=== PATIENT | male | born 1975 | race Caucasian/White ===

== ENCOUNTER 2016-05-02 18:25 | Inpatient (IN) | payer OTHER ==
[~2016-05-02] VITALS: Ht 167.6 cm; Wt 62.4 kg
[~2016-05-02 18:25] MED LIST: ACET-2047 PO; BUSP10TA2 PO; CANA1000R PR; IBUP400T22 PO; ISON300T72 PO; PANT40TA3 PO; POLY17PO6 PO; PSYL1PAC8 PO
[2016-05-02 18:53] VITALS: Ht 167.6 cm; Wt 62.4 kg
[2016-05-02] MEDS ORDERED: SODIUM CHLORIDE 0.9% 1L BAG IV* STA (21:38)
[2016-05-02] MEDS ORDERED: ISONIAZID 300 MG TAB PO ONE (22:00)
--- NOTE | 2016-05-02 22:07 | RADRPT ---
PROCEDURE: XR Chest. CLINICAL INDICATION: Sepsis. TECHNIQUE: Single frontal view of the chest was obtained COMPARISON: Chest x-ray 01/30/2016. FINDINGS: The soft tissues are normal. There is an old fracture deformity of the mid left clavicle which is u nchanged. The heart is normal in size. The left-sided aorta is normal. The trachea and hilar struc tures are normal. The lungs are clear. The diaphragms are flattened. No pleural effusion is noted . The other bony elements are normal. IMPRESSION: 1. Pulmonary hyperinflation without evidence of an acute infiltrate. 2. Old fracture deformity of the left clavicle. 3. Stable chest compared to 01/20/2016. RPTAT:AAJJ Physician Cecelia Date Time Electronically viewed and signed by Physician Cecelia on 05/02/2016 22:06 /
[2016-05-02 22:18] LABS: ADD SCAN DIFF NO
[2016-05-02 22:20] LABS: BASOPHIL # 0.1 10^3/ul (0.0-0.1); BASOPHILS % 0.8 % (0.0-2.0); EOSINOPHILS # 0.2 10^3/ul (0.0-0.5); EOSINOPHILS % 3.4 % (0.0-7.0); HEMATOCRIT 43.8 % (42.0-52.0); HEMOGLOBIN 14.5 g/dl (14.0-18.0); LYMPHOCYTES # 2.4 10^3/ul (0.8-2.9); LYMPHOCYTES % 38.2 % (15.0-51.0); MEAN CORPUSCULAR HEMOGLOBIN 29.5 pg (29.0-33.0); MEAN CORPUSCULAR HGB CONC 33.1 g/dl (32.0-37.0); MEAN CORPUSCULAR VOLUME 89.2 fl (82.0-101.0); MEAN PLATELET VOLUME 11.1 fl (7.4-10.4); MONOCYTE # 0.7 10^3/ul (0.3-0.9); MONOCYTES % 10.5 % (0.0-11.0); NEUTROPHIL # 2.9 10^3/ul (1.6-7.5); NEUTROPHILS % 46.9 % (39.0-77.0); PLATELET COUNT 220 10^3/UL (140-415); RED BLOOD COUNT 4.91 10^6/ul (4.70-6.10); RED CELL DISTRIBUTION WIDTH 13.4 % (11.5-14.5); WHITE BLOOD COUNT 6.2 10^3/ul (4.8-10.8)
[2016-05-02 22:31] LABS: ALBUMIN 4.2 g/dl (3.3-4.9); CHLORIDE 102 mmol/L (97-110); INR 0.9; PARTIAL THROMBOPLASTIN TIME 27.5 Sec (25.0-35.0); POTASSIUM 4.2 mmol/L (3.5-5.1); PROTIME 12.1 Sec (12.2-14.2); PT RATIO 0.9; SODIUM 143 mmol/L (135-144)
[2016-05-02 22:33] LABS: ALBUMIN/GLOBULIN RATIO 1.35; ANION GAP 16 (8-16); ASPARTATE AMINO TRANSFERASE 28 IU/L (15-46); BILIRUBIN,INDIRECT 0.2 mg/dl (0-1.1); BILIRUBIN,TOTAL 0.2 mg/dl (0.2-1.3); CARBON DIOXIDE 29 mmol/L (21-31); CREATININE 0.76 mg/dl (0.61-1.24); TOTAL PROTEIN 7.3 g/dl (6.1-8.1)
[2016-05-02 22:34] LABS: ALANINE AMINOTRANSFERASE 24 IU/L (13-69); ALKALINE PHOSPHATASE 48 IU/L (42-121); BLOOD UREA NITROGEN 11 mg/dl (7-20); CALCIUM 9.3 mg/dl (8.4-10.2); GLUCOSE 81 mg/dl (70-220)
[2016-05-02 22:47] LABS: TROPONIN-I < 0.012 ng/ml (0.00-0.12)
[2016-05-02] MEDS ORDERED: SOD CHLORIDE 0.9% 100 ML ONE (22:54)
[2016-05-02] MEDS ORDERED: IOHEXOL 300MG/ML 150 ML BTL ONE (22:54)
[2016-05-03 00:09] LABS: ADD UMIC NO; URINE BILIRUBIN (Dip) NEGATIVE (NEGATIVE); URINE BLOOD (Dip) NEGATIVE (NEGATIVE); URINE COLOR LT. YELLOW (YELLOW); URINE GLUCOSE (Dip) NEGATIVE (NEGATIVE); URINE KETONES (Dip) NEGATIVE (NEGATIVE); URINE LEUKOCYTE ESTERASE (Dip) NEGATIVE (NEGATIVE); URINE NITRITE (Dip) NEGATIVE (NEGATIVE); URINE TOTAL PROTEIN (Dip) NEGATIVE (NEGATIVE); URINE UROBILINOGEN (Dip) 0.2 E.U./dL (0.1-1.0)
--- NOTE | 2016-05-03 00:37 | RADRPT ---
PROCEDURE: CT Chest with contrast. CLINICAL INDICATION: Sepsis, thoracic mass. History of tuberculosis. TECHNIQUE: A CT scan of the chest with contrast was performed. Coronal and sagittal reformatted im ages were obtained from the axial source images. 90 cc Omnipaque 300 were administered during examin ation without complication. CTDIvol: 4.94 mGy. Exam DLP: 177.58 mGy-cm. COMPARISON: CTA of the chest dated 07/08/2015. FINDINGS: There is no suspicious thyroid lesion. No thoracic lymphadenopathy is seen. The trachea and mainst em bronchi are patent. The heart is not enlarged. There is no pericardial effusion. There is scarring at the right lung apex, unchanged. A patchy right upper lobe opacity with subtle a ssociated bronchiectasis is decreased since the prior CT. There is no pleural effusion or pneumothor ax Limited evaluation of the upper abdomen is unremarkable. There is no suspicious osseous lesion. IMPRESSION: 1. Patchy right upper lobe opacity with subtle associated bronchiectasis, decreased since the prior CT. It is unclear if this represents an active infection versus residual scarring. 2. No thoracic mass or lymphadenopathy. RPTAT: HTAR .Alcides Garcia MD, Date Time Electronically viewed and signed by .Alcides Garcia MD, on 05/03/2016 00:36 .R/
[2016-05-03] MEDS ORDERED: SOD CHLORIDE 0.9% 1,000 ML IV SCH (01:42)
--- NOTE | 2016-05-03 01:46 | ERA ---
ER Documentation Chief Complaint Date/Time DATE: 05/03/16 TIME: 01:43 Chief Complaint Back pain. DX PTB. Non compliant with medication HPI This is a 40-year-old male with a history of tuberculosis who presents to the emergency room for evaluation of body aches, back pain, and mild shortness of breath. This patient was on isoniazid, however he did not complete his 9 month course. The patient denies any fever, came to the emergency room for evaluation. This patient states that he is having pain all over his body and describes his pain is an achy pain and almost a muscular type of pain. He denies any trauma and denies any chills or weight loss. ROS All systems reviewed and are negative except as per history of present illness. Medications Home Meds Active Scripts Pantoprazole* (Protonix*) 40 Mg Tablet.dr, 40 MG PO BID for 30 Days, TAB Prov:TERESA WINCHESTER [employer] ARTIST INSTRUCTOR 07/18/15 Mesalamine* (Canasa*) 1,000 Mg Supp, 1000 MG AR HS for 30 Days, SUPP Prov:WINCHESTERTERESA V. [employer] ARTIST INSTRUCTOR 07/18/15 Isoniazid* (Isoniazid*) 300 Mg Tablet, 300 MG PO DAILY for 90 Days, TAB TAKES FOR 9 MONTHS Prov:TERESA WINCHESTER [employer] ARTIST INSTRUCTOR 07/18/15 Reported Medications Psyllium Seed/Sucrose* (Metamucil* Packet) 1 Pkt Packet, 1 PKT PO DAILY, PACKET 07/08/15 Polyethylene Glycol* (Miralax*) 17 Gm Powd.pack, 17 GM PO DAILY, #30 PACKET 07/08/15 Acetaminophen* (Acetaminophen*) 650 Mg Tablet, 650 MG PO Q6H Y for PAIN AND OR ELEVATED TEMP, #30 TAB 07/08/15 Ibuprofen* (Motrin*) 400 Mg Tab, 400 MG PO Q6H Y for PAIN, TAB 07/08/15 Buspirone Hcl* (Buspirone Hcl*) 10 Mg Tab, 20 MG PO BID, TAB 07/08/15 Allergies Allergies: Coded Allergies: No Known Allergy (Unverified , 04/24/13) PMhx/Soc History of Surgery: Yes (hemorrhoid sx) Anesthesia Reaction: No Hx Neurological Disorder: No Hx Respiratory Disorders: Yes (TB on meds) Hx Cardiac Disorders: No Hx Psychiatric Problems: No Hx Miscellaneous Medical Probl: No Hx Alcohol Use: No Hx Substance Use: No Hx Tobacco Use: No Smoking Status: Never smoker Physical Exam Vitals Vital Signs Date Time Temp Pulse Resp B/P Pulse Ox O2 Delivery O2 Flow Rate FiO2 05/02/16 23:49 Nasal Cannula 2 05/02/16 18:53 97.9 91 18 106/72 99 Physical Exam INITIAL VITAL SIGNS: Reviewed by me GENERAL: The patient is cachectic appearing gentleman, no acute distress HEENT: Dry mucous membranes, pupils equal, round, and reactive to light. EOMI. There is no scleral icterus. NECK: C-spine is soft and supple, there is no meningismus. There is no cervical lymphadenopathy. LUNGS: Clear to auscultation bilaterally. There are no rales, wheezes or rhonchi. HEART: Regular rate and rhythm, no murmurs, clicks, rubs or gallops. ABDOMEN: Soft, non-tender, non-distended. There are bowel sounds in all four quadrants. No rebound or guarding. EXTREMITIES: There is no peripheral cyanosis or edema. No focal swelling or erythema. NEUROLOGICAL: The patient moves all four extremities with 5/5 strength. Cranial nerves II - XII are intact. Normal gait. Alert and oriented SKIN: There is no apparent rash or petechiae. HEME/LYMPHATIC: There is no evidence of excessive bruising or lymphedema. PSYCHIATRIC: The patient does not appear anxious or depressed. Result Diagram: 05/02/16214905/02/162149 Results 24 hrs Laboratory Tests Test 05/02/16 21:50 05/02/16 23:50 Activated Partial Thromboplast Time 27.5Sec Alanine Aminotransferase (ALT/SGPT) 24IU/L Albumin 4.2g/dl Albumin/Globulin Ratio 1.35 Alkaline Phosphatase 48IU/L Anion Gap 16 Aspartate Amino Transf (AST/SGOT) 28IU/L Basophils # 0.110^3/ul Basophils % 0.8% Blood Urea Nitrogen 11mg/dl Calcium Level 9.3mg/dl Carbon Dioxide Level 29mmol/L Chloride Level 102mmol/L Creatinine 0.76mg/dl Direct Bilirubin 0.00mg/dl Eosinophils # 0.210^3/ul Eosinophils % 3.4% Globulin 3.10g/dl Glucose Level 81mg/dl Hematocrit 43.8% Hemoglobin 14.5g/dl INR International Normalized Ratio 0.90 Indirect Bilirubin 0.2mg/dl Lactic Acid Level 1.0mmol/L 0.8mmol/L Lymphocytes # 2.410^3/ul Lymphocytes % 38.2% Mean Corpuscular Hemoglobin 29.5pg Mean Corpuscular Hemoglobin Concent 33.1g/dl Mean Corpuscular Volume 89.2fl Mean Platelet Volume 11.1fl Monocytes # 0.710^3/ul Monocytes % 10.5% Neutrophils # 2.910^3/ul Neutrophils % 46.9% Nucleated Red Blood Cells # 0.010^3/ul Nucleated Red Blood Cells % 0.0/100WBC Platelet Count 67438^3/UL Potassium Level 4.2mmol/L Prothrombin Time 12.1Sec Prothrombin Time Ratio 0.9 Red Blood Count 4.9110^6/ul Red Cell Distribution Width 13.4% Sodium Level 143mmol/L Total Bilirubin 0.2mg/dl Total Protein 7.3g/dl Troponin I < 0.012ng/ml White Blood Count 6.210^3/ul Urine Bilirubin NEGATIVE Urine Clarity CLEAR Urine Color LT. YELLOW Urine Glucose NEGATIVE% Urine Hemoglobin NEGATIVE Urine Ketones NEGATIVE Urine Leukocyte Esterase NEGATIVE Urine Nitrite NEGATIVE Urine Specific [place] 1.010 Urine Total Protein NEGATIVE Urine Urobilinogen 0.2 E.U./dL Urine pH 8.0 Current Medications Medications (Trade) Dose Ordered Sig/Jenny Route PRN Reason Start Time Stop Time Status Last Admin Dose Admin Sodium Chloride (NS) 1,970 ml BOLUS OVER 2 HOURS STAT IV* 05/02/16 21:38 05/02/16 21:39 DC 05/02/16 23:27 Isoniazid (Isoniazid) 300 mg ONCE ONCE PO 05/02/16 22:00 05/02/16 22:01 DC 05/02/16 23:43 IV Flush 10 ml 10 ml STK-MED ONCE .ROUTE 05/02/16 22:54 05/02/16 22:55 DC 05/02/16 23:09 Sodium Chloride (NS) 100 ml @ ud STK-MED ONCE .ROUTE 05/02/16 22:54 05/02/16 22:55 DC 05/02/16 23:09 Iohexol (Omnipaque 300mg/ ml) 150 ml STK-MED ONCE .ROUTE 05/02/16 22:54 05/02/16 22:55 DC 05/02/16 23:09 Procedures/MDM EKG: Rate/Rhythm: [Normal Sinus Rhythm] QRS, ST, T-waves: [No changes consistent w/ acute ischemia] Impression: [No evidence of ischemia or arrhythmia] Chest X-ray 1V Interpreted by me: Soft Tissue: No acute abnormalities Bones: No acute abnormalities Mediastinum/Cardiac Silhouette/Lungs: [No acute abnormalities] CT chest with contrast: 1. Patchy right upper lobe opacity with subtle associated bronchiectasis, decreased since the prior CT. It is unclear if this represents an active infection versus residual scarring. 2. No thoracic mass or lymphadenopathy. This 40-year-old male presents to the ER for evaluation of generalized weakness , back pain, body aches. The patient does have a history of tuberculosis, and has been noncompliant with his isoniazid medications. The patient was afebrile here in the emergency room. Blood and urine cultures were obtained including an acid-fast bacilli culture. The patient did have a CT of the chest with contrast which does show a right upper lobe opacity. The patient was given isoniazid here in the emergency room. He was kept in a negative isolation room and will be placed in for admission under the care of her panel physician, Dr. Storm Departure Diagnosis: Primary Impression: Tuberculosis Additional Impressions: Myalgia Back pain Condition: Stable VINNIE LEVI DO May 03, 2016 01:46
[2016-05-03] MEDS ORDERED: ACETAMINOPHEN 325 MG TAB PO PRN ×2 (02:00→04:00)
[2016-05-03] MEDS ORDERED: ONDANSETRON 4 MG INJ IV PRN ×2 (02:00→04:00)
[2016-05-03 02:43] VITALS: BMI 22.2
[2016-05-03 03:07] VITALS: BP 117/80; RESP 16
[2016-05-03] MEDS ORDERED: NITROGLYCERIN (SL) 0.4 MG TAB SL PRN (04:00)
[2016-05-03] MEDS ORDERED: hydrALAzine 20 MG INJ IV PRN (04:00)
[2016-05-03] MEDS ORDERED: MAGNESIUM HYDROXIDE 30ML CUP PO PRN (04:00)
[2016-05-03] MEDS ORDERED: ALBUTEROL/IPRATROPIUM (NEB) 3 ML AMP HHN PRN (04:00)
[2016-05-03] MEDS ORDERED: NA PHOSPHATE/BIPHOS 133 ML ENEMA PR PRN (04:00)
[2016-05-03] MEDS ORDERED: NACL 0.9% 3 ML SYG IV SCH (04:00)
[2016-05-03] MEDS ORDERED: DOCUSATE SODIUM 100 MG CAP PO PRN (04:00)
[2016-05-03] MEDS ORDERED: IBUPROFEN 400 MG TAB PO PRN (04:00)
[2016-05-03] MEDS ORDERED: LORAZEPAM 2 MG INJ IV PRN (04:00)
[2016-05-03] MEDS ORDERED: DIVA500T15 PO (04:21)
[2016-05-03] MEDS: SOD CHLORIDE 0.45% 1,000 ML IV SCH ×2 (04:34→18:40)
[2016-05-03] MEDS: morphine 2 MG INJ IV PRN (04:35)
[2016-05-03] MEDS: LEVOFLOXACIN 750MG/D5W (PMX) 150 ML IVPB SCH (06:12)
[2016-05-03] MEDS: PANTOPRAZOLE (EC) 40 MG TAB PO SCH ×2 (06:12→18:40)
--- NOTE | 2016-05-03 07:05 | HP ---
DATE OF ADMISSION: 05/03/2016 CHIEF COMPLAINT: Body aches and back pain. HISTORY OF PRESENT ILLNESS: A 40-year-old male with a past medical history of TB diagnosed about 9 months ago, who has not been compliant with isoniazid, who presents with body aches and back pain. He has also had some mild shortness of breath symptoms. The patient has not completed his 9-month c ourse of isoniazid. Denies any fevers, but he describes the pain as sort of all over his body, achi ng pain, almost a muscular type of pain, so positive myalgias. Denies any trauma to the area. Horace es any chills. No weight loss, no upper or lower GI bleeding. No diarrhea, no constipation. No he adaches. PAST MEDICAL HISTORY: As stated above. ALLERGIES: NO KNOWN DRUG ALLERGIES. HOME MEDICATIONS: 1. Again, Isoniazid 300 mg daily, but he is not compliant with that. 2. Tylenol 650 q.6 p.r.n. 3. Buspirone 20 mg b.i.d. 4. Divalproex 500 mg at bedtime. 5. Motrin 400 mg q.6h. p.r.n. 6. Mesalamine 1000 mg per rectum at bedtime. 7. Protonix 40 mg b.i.d. 8. MiraLax 17 grams daily. 9. Metamucil, 1 packet daily. PAST SURGICAL HISTORY: Hemorrhoid surgery in the past. SOCIAL HISTORY: Negative for smoking, drinking, or IV drug abuse. FAMILY HISTORY: Noncontributory. PHYSICAL EXAMINATION: VITAL SIGNS: Today T-max 97.9, pulse 91, respirations 18, blood pressure 106/72, saturating at 99% on 2 liters nasal cannula. GENERAL: The patient is lying in bed, answering questions appropriately, in negative room isolation , in no acute distress. HEENT: Pupils are equal, round, and react to light. Extraocular muscles intact. NECK: Supple. No thyromegaly. LUNGS: Clear to auscultation bilaterally. CARDIOVASCULAR: S1, S2 heard. No rubs or gallops. ABDOMEN: Soft, nontender, nondistended. Normal bowel sounds. No rebound or guarding. MUSCULOSKELETAL: No lower extremity edema bilaterally. NEUROLOGIC: No focal deficits. LABORATORIES: CBC is normal. A comprehensive metabolic panel is normal. Lactic acid is normal. C oags are normal. CT of the chest was performed and it shows patchy right upper lobe opacity with subtle associated br onchiectasis, decreased since the prior CT. Unclear if this represents active infection versus scar ring. No thoracic mass or lymphadenopathy. Chest x-ray was performed, shows pulmonary hyperinflatio n, but no evidence of any acute infiltrate. Old fracture deformity of the left clavicle stable. St able chest x-ray compared to 01/20/2016. ASSESSMENT AND PLAN: A 40-year-old male coming in with body aches and weakness for the last 2 days a nd noncompliance with TB medications. Rule out active tuberculosis. 1. Body aches and weakness. Again, with a history of noncompliance with TB medications. Will keep the patient in negative air isolation room. Will check first sputum for AFB x3, will put him back on isoniazid. Consider an infectious disease consult as well. If there are any abnormalities with his AFB test, i.e., if they are positive, then the patient would need to be on 4-drug therapy at norm t time. Tylenol p.r.n. pain and fevers. Will add Levaquin, given the chest x-ray findings of mild infiltrate, although it has improved. Check a TSH, A1c, and lipid panel. 2. Gastrointestinal prophylaxis. PPI. 3. Deep venous thrombosis prophylaxis. Heparin subcutaneously. 4. History of hemorrhoids. Continue mesalamine. No signs of any bleeding. Dictated By: SHERRY CONRAD/JEFFERSON Conf#: [id number] DID#: [id number]
[2016-05-03 08:30] VITALS: BP 122/85; RESP 16
[2016-05-03] MEDS: POLYETHYLENE GLYCOL 17 GM PACKET PO SCH (09:03)
[2016-05-03] MEDS: PSYLLIUM 28% PACKET PO SCH (09:03)
[2016-05-03] MEDS: BUSPIRONE 10 MG TAB PO SCH ×2 (09:03→21:44)
[2016-05-03] MEDS: ISONIAZID 300 MG TAB PO SCH (09:03)
[2016-05-03] MEDS: HEPARIN 5,000 UNIT/0.5 ML SYG SC SCH ×2 (09:51→21:50)
--- NOTE | 2016-05-03 11:41 | PN ---
Date/Time of Note Date/Time of Note DATE: 05/03/16 TIME: 11:38 Assessment/Plan VTE Prophylaxis VTE Prophylaxis Intervention: heparin, SCD's Lines/Catheters IV Catheter Type (from Nrs): Peripheral IV Urinary Cath still in place: No Assessment/Plan Assessment/Plan 1. rule out TB, AFB x 3 2. Gastrointestinal prophylaxis. PPI. 3. Deep venous thrombosis prophylaxis. Heparin subcutaneously. 4. History of hemorrhoids. Continue mesalamine. No signs of any bleeding. Subjective 24 Hr Interval Summary Free Text/Dictation pt still c/o abd pain, BP stable, afebrile Exam/Review of Systems Vital Signs Vitals Vital Signs Date Time Temp Pulse Resp B/P Pulse Ox O2 Delivery O2 Flow Rate FiO2 05/03/16 08:30 98.0 65 16 122/85 99 05/02/16 23:49 Nasal Cannula 2 Intake and Output 05/02/16 05/02/16 05/03/16 15:00 23:00 07:00 Intake Total 30 ml Output Total 450 ml Balance -420 ml Exam GENERAL: The patient is lying in bed, answering questions appropriately, in negative room isolation, in no acute distress. HEENT: Pupils are equal, round, and react to light. Extraocular muscles intact. NECK: Supple. No thyromegaly. LUNGS: Clear to auscultation bilaterally. CARDIOVASCULAR: S1, S2 heard. No rubs or gallops. ABDOMEN: Soft, nontender, nondistended. Normal bowel sounds. No rebound or guarding. MUSCULOSKELETAL: No lower extremity edema bilaterally. NEUROLOGIC: No focal deficits. Results Result Diagram: 05/02/16214905/02/162149 Results 24 hrs Laboratory Tests Test 05/02/16 21:50 05/02/16 23:50 05/03/16 02:10 05/03/16 04:55 Activated Partial Thromboplast Time 27.5 Alanine Aminotransferase (ALT/SGPT) 24 Albumin 4.2 Albumin/Globulin Ratio 1.35 Alkaline Phosphatase 48 Anion Gap 16 Aspartate Amino Transf (AST/SGOT) 28 Basophils # 0.1 Basophils % 0.8 Blood Urea Nitrogen 11 Calcium Level 9.3 Carbon Dioxide Level 29 Chloride Level 102 Creatinine 0.76 Direct Bilirubin 0.00 Eosinophils # 0.2 Eosinophils % 3.4 Globulin 3.10 Glucose Level 81 Hematocrit 43.8 Hemoglobin 14.5 INR International Normalized Ratio 0.90 Indirect Bilirubin 0.2 Lactic Acid Level 1.0 0.8 0.8 Lymphocytes # 2.4 Lymphocytes % 38.2 Mean Corpuscular Hemoglobin 29.5 Mean Corpuscular Hemoglobin Concent 33.1 Mean Corpuscular Volume 89.2 Mean Platelet Volume 11.1 H Monocytes # 0.7 Monocytes % 10.5 Neutrophils # 2.9 Neutrophils % 46.9 Nucleated Red Blood Cells # 0.0 Nucleated Red Blood Cells % 0.0 Platelet Count 220 Potassium Level 4.2 Prothrombin Time 12.1 L Prothrombin Time Ratio 0.9 Red Blood Count 4.91 Red Cell Distribution Width 13.4 Sodium Level 143 Total Bilirubin 0.2 Total Protein 7.3 Troponin I < 0.012 White Blood Count 6.2 Urine Bilirubin NEGATIVE Urine Clarity CLEAR Urine Color LT. YELLOW Urine Glucose NEGATIVE Urine Hemoglobin NEGATIVE Urine Ketones NEGATIVE Urine Leukocyte Esterase NEGATIVE Urine Nitrite NEGATIVE Urine Specific [place] 1.010 Urine Total Protein NEGATIVE Urine Urobilinogen 0.2 E.U./dL Urine pH 8.0 Free Thyroxine 1.12 Medications Medications Current Medications Sodium Chloride (NS) 1,000 ml @ 80 mls/hr [id number] IV ; Start 05/03/16 at 01:42 ; Stop 05/03/16 at 14:11 Ondansetron HCl (Zofran Inj) 4 mg Q6H PRN IV NAUSEA AND/OR VOMITING; Start at 04:00 Acetaminophen (Tylenol Tab) 650 mg Q6H PRN PO PAIN LEVEL 1-3 OR FEVER; Start at 04:00 Acetaminophen/ Hydrocodone Bitart (Aurelia (5/325)) 1 tab Q6H PRN PO MODERATE PAIN LEVEL 4-6; Start 05/03/16 at 04:00 Morphine Sulfate (morphine) 2 mg Q4H PRN IV SEVERE PAIN LEVEL 7-10 Last administered on 05/03/16t 04:35; Admin Dose 2 MG; Start 05/03/16 at 04:00 Docusate Sodium (Colace) 100 mg Q12H PRN PO CONSTIPATION; Start 05/03/16 at 04: 00 Magnesium Hydroxide (Milk Of Mag) 30 ml DAILY PRN PO CONSTIPATION; Start at 04:00 Sodium Biphosphate/ Sodium Phosphate (Fleet Enema) 133 ml DAILY PRN ME CONSTIPATION; Start 05/03/16 at 04:00 Heparin Sodium (Porcine) 5000 unit 5,000 unit Q12 SC Last administered on 09:51; Admin Dose 5,000 UNIT; Start 05/03/16 at 09:00 Sodium Chloride (1/2 NS) 1,000 ml @ 75 mls/hr [id number] IV Last administered on 05/03/16 04:34; Admin Dose 75 MLS/HR; Start 05/03/16 at 03:58 Lorazepam 0.5 mg 0.5 mg Q6H PRN IV ANXIETY; Start 05/03/16 at 04:00 Levofloxacin/ Dextrose (Levaquin 750 Mg/ D5W 150 ml (Pmx)) 150 ml @ 100 mls/hr Q24H IVPB Last administered on 05/03/16 06:12; Admin Dose 100 MLS/HR; Start at 06:00 Hydralazine HCl (Apresoline) 10 mg Q6H PRN IV ELEVATED BLOOD PRESSURE; Start at 04:00 Clonidine (Catapres) 0.1 mg Q6H PRN PO ELEVATED BLOOD PRESSURE; Start 05/03/16 at 04:00 Nitroglycerin (Nitroglycerin (Sl Tab) 0.4 Mg) 1 tab Q5M PRN SL ANGINA; Start at 04:00 Buspirone HCl (Buspar) 20 mg BID PO Last administered on 05/03/16 09:03; Admin Dose 20 MG; Start 05/03/16 at 09:00 Ibuprofen (Motrin) 400 mg Q6H PRN PO PAIN; Start 05/03/16 at 04:00 Isoniazid (Isoniazid) 300 mg DAILY PO Last administered on 05/03/16 09:03; Admin Dose 300 MG; Start 05/03/16 at 09:00 Mesalamine (Canasa Supp) 1,000 mg HS ME ; Start 05/03/16 at 21:00 Pantoprazole (Protonix Tab) 40 mg BID@18 PO Last administered on 05/03/16 06:12; Admin Dose 40 MG; Start 05/03/16 at 06:00 Polyethylene Glycol (Miralax) 17 gm DAILY PO Last administered on 05/03/16 09: 03; Admin Dose 17 GM; Start 05/03/16 at 09:00 Psyllium Hydrophilic Mucilloid (Metamucil) 1 pkt DAILY PO Last administered on 05/03/16t 09:03; Admin Dose 1 PKT; Start 05/03/16 at 09:00 WILLIAMS CHAPARRO MD May 03, 2016 11:41
[2016-05-03 19:24] VITALS: BP 105/64; RESP 18
[2016-05-03 19:42] VITALS: BP 133/62; RESP 18
[2016-05-03] MEDS: MESALAMINE 1000 MG SUPP PR SCH (21:44)
[2016-05-04] MEDS: PANTOPRAZOLE (EC) 40 MG TAB PO SCH ×2 (05:13→17:52)
[2016-05-04 05:36] LABS: ADD SCAN DIFF NO
[2016-05-04 05:41] LABS: EOSINOPHILS # 0.2 10^3/ul (0.0-0.5); HEMATOCRIT 45.8 % (42.0-52.0); HEMOGLOBIN 14.9 g/dl (14.0-18.0); LYMPHOCYTES # 1.5 10^3/ul (0.8-2.9); LYMPHOCYTES % 36.9 % (15.0-51.0); MEAN CORPUSCULAR HEMOGLOBIN 28.7 pg (29.0-33.0); MEAN CORPUSCULAR HGB CONC 32.5 g/dl (32.0-37.0); MEAN CORPUSCULAR VOLUME 88.2 fl (82.0-101.0); MONOCYTE # 0.4 10^3/ul (0.3-0.9); NEUTROPHIL # 1.9 10^3/ul (1.6-7.5); NEUTROPHILS % 47.9 % (39.0-77.0); PLATELET COUNT 225 10^3/UL (140-415); RED BLOOD COUNT 5.19 10^6/ul (4.70-6.10); RED CELL DISTRIBUTION WIDTH 13.5 % (11.5-14.5)
[2016-05-04] MEDS: LEVOFLOXACIN 750MG/D5W (PMX) 150 ML IVPB SCH (05:44)
[2016-05-04 06:06] LABS: POTASSIUM 4.3 mmol/L (3.5-5.1)
[2016-05-04 06:09] LABS: CREATININE 0.94 mg/dl (0.61-1.24)
[2016-05-04 06:10] LABS: CALCIUM 9.4 mg/dl (8.4-10.2); CHOL/HDL RATIO 2.7 RATIO; MAGNESIUM 2.1 mg/dl (1.7-2.5); PHOSPHORUS 4.8 mg/dl (2.5-4.9)
[2016-05-04] MEDS: SOD CHLORIDE 0.45% 1,000 ML IV SCH ×2 (06:38→11:25)
[2016-05-04 06:55] LABS: THYROID STIMULATING HORMONE 0.647 MIU/L (0.465-4.680)
[2016-05-04 07:45] VITALS: BP 96/60; RESP 20
[2016-05-04] MEDS: PSYLLIUM 28% PACKET PO SCH (08:30)
[2016-05-04] MEDS: ISONIAZID 300 MG TAB PO SCH (08:30)
[2016-05-04] MEDS: POLYETHYLENE GLYCOL 17 GM PACKET PO SCH (08:30)
[2016-05-04] MEDS: BUSPIRONE 10 MG TAB PO SCH ×2 (08:30→20:50)
[2016-05-04] MEDS: HEPARIN 5,000 UNIT/0.5 ML SYG SC SCH ×2 (08:35→20:58)
--- NOTE | 2016-05-04 18:16 | PN ---
DATE: 05/04/2016 SUBJECTIVE: No changes overnight. The patient is alert, feels good, looks comfortable. No fevers. VITAL SIGNS: Stable. LABORATORY DATA: WBC today 4, no shift, no bands. BUN 11, creatinine 0.94. Serology for HIV came back negative. ANTIMICROBIALS: The patient is on Levaquin. PHYSICAL EXAMINATION: GENERAL: This is a well-developed, middle-aged man who is alert, in no distress. HEENT: Head atraumatic, normocephalic. Sclerae anicteric. Buccal mucosa pink. NECK: Supple. CHEST: Rise symmetrical. Breath sounds clear. HEART: S1, S2. ABDOMEN: Soft. Bowel tones present. EXTREMITIES: Without cyanosis or edema. ASSESSMENT: 1. Systemic inflammatory response syndrome with generalized weakness and myalgias. 2. Right upper chest opacity with associated with bronchiectasis, decreased since the prior CT. 3. History of QuantiFERON TB Gold positive serology. 4. History of alcohol abuse. 5. History of Escherichia coli septicemia secondary to acute pyelonephritis. PLAN: The patient remains stable. He had a negative AFBs, 3 sets, back in 06/2015. He has a CT of the chest looks better compared to previous film. Doubt patient needs to be on isolation and doubt that he needs another set of AFB done. We will discuss with Dr. Overton. Continue Levaquin. Cons ider discontinue isolation. Dictated By: CAROLYN FUNEZ POWER SHOVEL ENGINEER for LUISA CHAND/NTS Conf#: [id number] DID#: [id number] CC: SHERRY MOLINA;*EndANGELICA*
[2016-05-04 19:23] VITALS: BP 127/73; RESP 20
--- NOTE | 2016-05-04 20:29 | CONS ---
DATE OF ADMISSION: 05/03/2016 DATE OF CONSULTATION: TYPE OF CONSULTATION: Infectious disease consultation for Dr. Rober Cody. REQUESTING PHYSICIAN: Dr. Sherry Molina HISTORY OF PRESENT ILLNESS: The patient is a 40-year-old single [facility] who is admitted on 05/03/2016 with chief complaint of body aches and shortness of breath and with aches described as to yair body pain and no fever. The patient has been taking INH 300 mg a day since July but has stopped this approximately 1 week ago, having only 29 more pills to go, according to him. He was supposed to be taking this for a 9 month period. It seems that he is very close to having completed that [facility]. He is anxious because he is in a marginal economic condition as well as a marginal sociologi donny condition as well as being an immigrant for 9 years. Upon arriving, he had a white count of 6200. His hemoglobin was 14.5 grams, his temperature was 97. 9, pulse 91, respirations 18, blood pressure 106/72. His O2 saturation on 2 liters per minute was 9 9. He had a chest x-ray which was not particularly remarkable. Definitely there was a questionable righ t upper lobe infiltrate. CT scan revealed a patchy right upper lobe opacity with subtle bronchiecta tic findings. The patient has not produced any sputum. He has no night sweats and no weight loss. The patient states that he was here in July for pneumonia and was subsequently told that he had tub erculosis and was put on months of INH without Pyridoxine. He patient states he had a TB skin test, which was not positive. I have reviewed his medical record from his spring visit of last year and he had acid fast smears and cultures done, but they were negative. If he had active tuberculosis he would have been treated with 4 drugs. He feels that the INH was contributing to his anxiety and mikki lgias and also he feels that his lower teeth were loosening, although they appear to be completely s traight to examination and considered that the INH could be contributing to this condition to one de gree or another. PAST MEDICAL HISTORY: The patient has trouble with bowel problems taking: MEDICATIONS: 1. Pantoprazole 40 mg twice a day. 2. Mesalamine 1000 mg at bedtime. 3. Metamucil 1 17 gram packet daily. 4. MiraLax. 5. He also takes BuSpar or Buspirone as it is known 10 mg twice a day. SOCIAL HISTORY: The patient never smokes. He had left his country because of gender preference iss ues. He has one family member here, a sibling and the patient has never been a smoker. He does not use drugs. He drinks alcohol occasionally. REVIEW OF SYSTEMS: The patient has had HIV and hepatitis C tests which have been negative, francesca g to his accompanying referral information. PHYSICAL EXAMINATION GENERAL: Reveals a slender male who is alert, oriented and cooperative. He has eaten ever y tiny bit of food on his lunch tray. VITAL SIGNS: The blood pressure is 110/70, pulse is 84, respirations are 18. He is afebrile. HEENT: The pupils are constricted, round and react to light. Extraocular movements are full. The mouth has moist mucous membranes. The gums are in good repair. The teeth are in good repair. Ther e is mild erythema and congestion to the posterior throat. NECK: Supple. There is no jugular venous distention. CHEST: Does not have any increased AP diameter. There are no wheezes or rhonchi. ABDOMEN: Firm. No palpable organs or masses. EXTREMITIES: Reveal no edema, cyanosis or clubbing. Distal pedal pulses are intact. INITIAL IMPRESSION: 1. Influenza. 2. Right upper lobe pneumonia. 3. Gastroesophageal reflux disease. 4. Constipation. 5. Anxiety. RECOMMENDATION: Discontinue the INH as the patient has completed 90% or more of the required course for whatever reason he should be taking it. If he had TB we would start with 4 drugs and go from t here. The patient has had no fever or night sweats or weight loss. Recommend continuing the Levaqu in, discontinuing the INH and begin a course of Tamiflu and obtain influenzal titers for influenza A and B. Thank you for referring this interesting patient to Dr. Cody. Dictated By: Isabel MATOS/JEFFERSON Conf#: [id number] DID#: [id number] CC: SHERRY MOLINA;*EndCC*
[2016-05-04] MEDS: OSELTAMIVIR 75 MG CAP PO SCH (20:50)
[2016-05-04] MEDS: MESALAMINE 1000 MG SUPP PR SCH (20:50)
--- NOTE | 2016-05-04 20:53 | PN ---
Date/Time of Note Date/Time of Note DATE: 05/04/16 TIME: 20:51 Assessment/Plan VTE Prophylaxis VTE Prophylaxis Intervention: heparin Lines/Catheters IV C[facility]ter Type (from [facility]): Peripheral IV Urinary Cath still in place: No Assessment/Plan Assessment/Plan 1. Influenza. 2. Right upper lobe pneumonia. 3. Gastroesophageal reflux disease. 4. Constipation. 5. Anxiety. 6 Rule out TB active Plan: Isolation continue current IV abx ID following BP stable Subjective 24 Hr Interval Summary Free Text/Dictation no cough no hemoptysis, 2 sputum AFB sent Exam/Review of Systems Vital Signs Vitals Vital Signs Date Time Temp Pulse Resp B/P Pulse Ox O2 Delivery O2 Flow Rate FiO2 05/04/16 19:23 99.6 83 20 127/73 100 05/02/16 23:49 Nasal Cannula 2 Intake and Output 05/03/16 05/03/16 05/04/16 15:00 23:00 07:00 Intake Total 1120 ml 1450 ml Output Total 750 ml Balance 1120 ml 700 ml Exam GENERAL: The patient is lying in bed, answering questions appropriately, in negative room isolation, in no acute distress. HEENT: Pupils are equal, round, and react to light. Extraocular muscles intact. NECK: Supple. No thyromegaly. LUNGS: Clear to auscultation bilaterally. CARDIOVASCULAR: S1, S2 heard. No rubs or gallops. ABDOMEN: Soft, nontender, nondistended. Normal bowel sounds. No rebound or guarding. MUSCULOSKELETAL: No lower extremity edema bilaterally. NEUROLOGIC: No focal deficits. Results Result Diagram: 05/04/16 0448 05/04/16 0448 Results 24 hrs Laboratory Tests Test 05/04/16 04:40 05/04/16 04:48 Hemoglobin A1c 5.5 Anion Gap 17 H Basophils # 0.0 Basophils % 1.0 Blood Urea Nitrogen 11 Calcium Level 9.4 Carbon Dioxide Level 27 Chloride Level 104 Cholesterol Level 189 Cholesterol/HDL Ratio 2.7 Creatinine 0.94 Eosinophils # 0.2 Eosinophils % 4.0 Glucose Level 75 HDL Cholesterol 69 H Hematocrit 45.8 Hemoglobin 14.9 LDL Cholesterol, Calculated 100 Lymphocytes # 1.5 Lymphocytes % 36.9 Magnesium Level 2.1 Mean Corpuscular Hemoglobin 28.7 L Mean Corpuscular Hemoglobin Concent 32.5 Mean Corpuscular Volume 88.2 Mean Platelet Volume 11.0 H Monocytes # 0.4 Monocytes % 10.0 Neutrophils # 1.9 Neutrophils % 47.9 Nucleated Red Blood Cells # 0.0 Nucleated Red Blood Cells % 0.0 Phosphorus Level 4.8 Platelet Count 225 Potassium Level 4.3 Red Blood Count 5.19 Red Cell Distribution Width 13.5 Sodium Level 144 Thyroid Stimulating Hormone (TSH) 0.647 Triglycerides Level 98 White Blood Count 4.0 #L Medications Medications Current Medications Ondansetron HCl (Zofran Inj) 4 mg Q6H PRN IV NAUSEA AND/OR VOMITING; Start at 04:00 Acetaminophen (Tylenol Tab) 650 mg Q6H PRN PO PAIN LEVEL 1-3 OR FEVER; Start at 04:00 Acetaminophen/ Hydrocodone Bitart ([place] (5/325)) 1 tab Q6H PRN PO MODERATE PAIN LEVEL 4-6; Start 05/03/16 at 04:00 Morphine Sulfate (morphine) 2 mg Q4H PRN IV SEVERE PAIN LEVEL 7-10 Last administered on 05/03/16 04:35; Admin Dose 2 MG; Start 05/03/16 at 04:00 Docusate Sodium (Colace) 100 mg Q12H PRN PO CONSTIPATION; Start 05/03/16 at 04: 00 Magnesium Hydroxide (Milk Of Mag) 30 ml DAILY PRN PO CONSTIPATION; Start at 04:00 Sodium Biphosphate/ Sodium Phosphate (Fleet Enema) 133 ml DAILY PRN [place] CONSTIPATION; Start 05/03/16 at 04:00 Heparin Sodium (Porcine) 5000 unit 5,000 unit Q12 SC Last administered on 08:35; Admin Dose 5,000 UNIT; Start 05/03/16 at 09:00 Sodium Chloride (1/2 NS) 1,000 ml @ 75 mls/hr [id number] IV Last administered on 05/04/16 11:25; Admin Dose 75 MLS/HR; Start 05/03/16 at 03:58 Lorazepam 0.5 mg 0.5 mg Q6H PRN IV ANXIETY; Start 05/03/16 at 04:00 Levofloxacin/ Dextrose (Levaquin 750 Mg/ D5W 150 ml (Pmx)) 150 ml @ 100 mls/hr Q24H IVPB Last administered on 05/04/16 05:44; Admin Dose 100 MLS/HR; Start at 06:00 Hydralazine HCl (Apresoline) 10 mg Q6H PRN IV ELEVATED BLOOD PRESSURE; Start at 04:00 Clonidine (Catapres) 0.1 mg Q6H PRN PO ELEVATED BLOOD PRESSURE; Start 05/03/16 at 04:00 Nitroglycerin (Nitroglycerin (Sl Tab) 0.4 Mg) 1 tab Q5M PRN SL ANGINA; Start at 04:00 Buspirone HCl (Buspar) 20 mg BID PO Last administered on 05/04/16 20:50; Admin Dose 20 MG; Start 05/03/16 at 09:00 Ibuprofen (Motrin) 400 mg Q6H PRN PO PAIN; Start 05/03/16 at 04:00 Mesalamine (Canasa Supp) 1,000 mg HS [place] Last administered on 05/04/16 20:50; Admin Dose 1,000 MG; Start 05/03/16 at 21:00 Pantoprazole (Protonix Tab) 40 mg BID@18 PO Last administered on 05/04/16 17:52; Admin Dose 40 MG; Start 05/03/16 at 06:00 Polyethylene Glycol (Miralax) 17 gm DAILY PO Last administered on 05/04/16 08: 30; Admin Dose 17 GM; Start 05/03/16 at 09:00 Psyllium Hydrophilic Mucilloid (Metamucil) 1 pkt DAILY PO Last administered on 05/04/16 08:30; Admin Dose 1 PKT; Start 05/03/16 at 09:00 Oseltamivir Phosphate (Tamiflu) 75 mg BID PO Last administered on 05/04/16 20: 50; Admin Dose 75 MG; Start 05/04/16 at 21:00; Stop 05/10/16 at 14:00 WILLIAMS CHAPARRO MD May 04, 2016 20:53
[2016-05-05] MEDS: LEVOFLOXACIN 750MG/D5W (PMX) 150 ML IVPB SCH (06:13)
[2016-05-05] MEDS: SOD CHLORIDE 0.45% 1,000 ML IV SCH ×2 (06:14→20:20)
[2016-05-05] MEDS: PANTOPRAZOLE (EC) 40 MG TAB PO SCH ×2 (06:20→18:02)
--- NOTE | 2016-05-05 07:51 | CONS ---
DATE OF ADMISSION: 05/03/2016 DATE OF CONSULTATION: 05/03/2016 Thank you, Dr. Jain, for this consultation. HISTORY OF PRESENT ILLNESS: This is a 40-year-old man who was admitted with body aches and back pain. He also had mild shortness of breath. No fevers, no chills, no weight loss, diarrhea or constipation. VITAL SIGNS UPON PRESENTATION: Temperature 97.9, pulse 91, respirations 18, blood pressure 106/72, saturation 99% on nasal cannula. WBC 16.2, H and H 14.5 and 43.8, platelets 220, neutrophils 46.9. Urinalysis negative for nitrite, leukocyte esterase. DIAGNOSTICS: Chest CT revealed patchy right upper lobe opacity with supple associated bronchiectasis has decreased since prior CT. No thoracic mass or lymphadenopathy. SOCIAL HISTORY: No smoking, alcohol, or IV drug abuse. REVIEW OF SYSTEMS: As per history. PAST MEDICAL HISTORY: As per history of present illness, the patient was hospitalized at [facility] back in June 2015 when we followed him to rule out TB. He had a sputum for AFB done and 3 sets were negative. Blood cultures on admission on 07/08/2015 grew E. coli. 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 He also had a cryptococcal antigen that was nondetected. Cocci serologies were done, results are not in the computer. The patient at that time was seen by Dr. Younger for colonoscopy secondary to rectal bleeding. 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 The patient also was seen by Dr. Overton. Again, he was cleared to be discharged on INH. PHYSICAL EXAMINATION : GENERAL: Well-nourished, well-developed, middle-aged man who is lying comfortably in bed. HEENT: Head atraumatic, normocephalic. Sclerae anicteric. Buccal mucosa pink. NECK: Supple. CHEST: Rise symmetrical. Breath sounds clear. HEART: S1, S2. ABDOMEN: Soft, bowel tones present. EXTREMITIES: Without cyanosis. DIAGNOSTIC IMPRESSION: This is a 40-year-old man admitted with generalized weakness with myalgia. 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 He was discharged home on INH. He is currently on respiratory isolation. We are going to ask pulmonary to evaluate his repeat chest CT. Await for final cultures. Check HIV status. Doubt pt needs isolation Above was discussed with Dr. Menchaca. Dictated By: CAROLYN FUNEZ TRIPOLER for LUISA CAMPUZANO MD NI/NTS Conf#: [id number] DID#: [id number] [facility]
[2016-05-05 08:02] VITALS: BP 106/59; RESP 18
[2016-05-05 08:14] LABS: ADD SCAN DIFF NO
[2016-05-05 08:26] LABS: POTASSIUM 3.8 mmol/L (3.5-5.1)
[2016-05-05 08:28] LABS: CREATININE 0.96 mg/dl (0.61-1.24)
[2016-05-05 08:29] LABS: CALCIUM 9.2 mg/dl (8.4-10.2)
[2016-05-05 08:43] LABS: BASOPHILS % 0.8 % (0.0-2.0); EOSINOPHILS # 0.1 10^3/ul (0.0-0.5); EOSINOPHILS % 2.9 % (0.0-7.0); HEMATOCRIT 46.9 % (42.0-52.0); HEMOGLOBIN 15.2 g/dl (14.0-18.0); LYMPHOCYTES # 1.4 10^3/ul (0.8-2.9); LYMPHOCYTES % 28.8 % (15.0-51.0); MEAN CORPUSCULAR HGB CONC 32.4 g/dl (32.0-37.0); MEAN CORPUSCULAR VOLUME 89.3 fl (82.0-101.0); MEAN PLATELET VOLUME 11.1 fl (7.4-10.4); MONOCYTE # 0.5 10^3/ul (0.3-0.9); MONOCYTES % 10.6 % (0.0-11.0); NEUTROPHIL # 2.7 10^3/ul (1.6-7.5); NEUTROPHILS % 56.7 % (39.0-77.0); PLATELET COUNT 229 10^3/UL (140-415); RED BLOOD COUNT 5.25 10^6/ul (4.70-6.10); RED CELL DISTRIBUTION WIDTH 13.7 % (11.5-14.5); WHITE BLOOD COUNT 4.8 10^3/ul (4.8-10.8)
[2016-05-05] MEDS: OSELTAMIVIR 75 MG CAP PO SCH ×2 (10:06→20:20)
[2016-05-05] MEDS: BUSPIRONE 10 MG TAB PO SCH ×2 (10:06→20:20)
[2016-05-05] MEDS: POLYETHYLENE GLYCOL 17 GM PACKET PO SCH (10:07)
[2016-05-05] MEDS: PSYLLIUM 28% PACKET PO SCH (10:07)
[2016-05-05] MEDS: HEPARIN 5,000 UNIT/0.5 ML SYG SC SCH ×2 (10:09→20:32)
--- NOTE | 2016-05-05 10:18 | PN ---
Date/Time of Note Date/Time of Note DATE: 05/05/16 TIME: 10:17 Assessment/Plan VTE Prophylaxis VTE Prophylaxis Intervention: SCD's Lines/Catheters IV C[facility] Type [facility] Peripheral IV Urinary Cath still in place: No Assessment/Plan Assessment/Plan 1. Influenza. 2. Right upper lobe pneumonia. 3. Gastroesophageal reflux disease. 4. Constipation. 5. Anxiety. 6 Rule out TB active Plan: Isolation continue current IV abx ID following, so far two sputum AFB has been sent BP stable Subjective 24 Hr Interval Summary Free Text/Dictation no acute pain, no cough,no hemoptysis Exam/Review of Systems Vital Signs Vitals Vital Signs Date Time Temp Pulse Resp B/P Pulse Ox O2 Delivery O2 Flow Rate FiO2 05/05/16 08:02 98.0 76 18 106/59 100 05/02/16 23:49 Nasal Cannula 2 Intake and Output 05/04/16 05/04/16 05/05/16 15:00 23:00 07:00 Intake Total 300 ml 1850 ml 1380 ml Output Total 1300 ml 800 ml Balance 300 ml 550 ml 580 ml Exam GENERAL: The patient is lying in bed, answering questions appropriately, in negative room isolation, in no acute distress. HEENT: Pupils are equal, round, and react to light. Extraocular muscles intact. NECK: Supple. No thyromegaly. LUNGS: Clear to auscultation bilaterally. CARDIOVASCULAR: S1, S2 heard. No rubs or gallops. ABDOMEN: Soft, nontender, nondistended. Normal bowel sounds. No rebound or guarding. MUSCULOSKELETAL: No lower extremity edema bilaterally. NEUROLOGIC: No focal deficits. Results Result Diagram: 05/05/16 0710 05/05/16 0712 Results 24 hrs Laboratory Tests Test 05/05/16 07:10 05/05/16 07:12 Basophils # 0.0 Basophils % 0.8 Eosinophils # 0.1 Eosinophils % 2.9 Hematocrit 46.9 Hemoglobin 15.2 Lymphocytes # 1.4 Lymphocytes % 28.8 Mean Corpuscular Hemoglobin 29.0 Mean Corpuscular Hemoglobin Concent 32.4 Mean Corpuscular Volume 89.3 Mean Platelet Volume 11.1 H Monocytes # 0.5 Monocytes % 10.6 Neutrophils # 2.7 Neutrophils % 56.7 Nucleated Red Blood Cells # 0.0 Nucleated Red Blood Cells % 0.0 Platelet Count 229 Red Blood Count 5.25 Red Cell Distribution Width 13.7 White Blood Count 4.8 Anion Gap 17 H Blood Urea Nitrogen 14 Calcium Level 9.2 Carbon Dioxide Level 28 Chloride Level 102 Creatinine 0.96 Glucose Level 85 Potassium Level 3.8 Sodium Level 143 Medications Medications Current Medications Ondansetron HCl (Zofran Inj) 4 mg Q6H PRN IV NAUSEA AND/OR VOMITING; Start at 04:00 Acetaminophen (Tylenol Tab) 650 mg Q6H PRN PO PAIN LEVEL 1-3 OR FEVER; Start at 04:00 Acetaminophen/ Hydrocodone Bitart ([place] (5/325)) 1 tab Q6H PRN PO MODERATE PAIN LEVEL 4-6; Start 05/03/16 at 04:00 Morphine Sulfate (morphine) 2 mg Q4H PRN IV SEVERE PAIN LEVEL 7-10 Last administered on 05/03/16 04:35; Admin Dose 2 MG; Start 05/03/16 at 04:00 Docusate Sodium (Colace) 100 mg Q12H PRN PO CONSTIPATION; Start 05/03/16 at 04: 00 Magnesium Hydroxide (Milk Of Mag) 30 ml DAILY PRN PO CONSTIPATION; Start at 04:00 Sodium Biphosphate/ Sodium Phosphate (Fleet Enema) 133 ml DAILY PRN [place] CONSTIPATION; Start 05/03/16 at 04:00 Heparin Sodium (Porcine) 5000 unit 5,000 unit Q12 SC Last administered on 10:09; Admin Dose 5,000 UNIT; Start 05/03/16 at 09:00 Sodium Chloride (1/2 NS) 1,000 ml @ 75 mls/hr [id number] IV Last administered on 05/05/16 06:14; Admin Dose 75 MLS/HR; Start 05/03/16 at 03:58 Lorazepam 0.5 mg 0.5 mg Q6H PRN IV ANXIETY; Start 05/03/16 at 04:00 Levofloxacin/ Dextrose (Levaquin 750 Mg/ D5W 150 ml (Pmx)) 150 ml @ 100 mls/hr Q24H IVPB Last administered on 05/05/16 06:13; Admin Dose 100 MLS/HR; Start at 06:00 Hydralazine HCl (Apresoline) 10 mg Q6H PRN IV ELEVATED BLOOD PRESSURE; Start at 04:00 Clonidine (Catapres) 0.1 mg Q6H PRN PO ELEVATED BLOOD PRESSURE; Start 05/03/16 at 04:00 Nitroglycerin (Nitroglycerin (Sl Tab) 0.4 Mg) 1 tab Q5M PRN SL ANGINA; Start at 04:00 Buspirone HCl (Buspar) 20 mg BID PO Last administered on 05/05/16 10:06; Admin Dose 20 MG; Start 05/03/16 at 09:00 Ibuprofen (Motrin) 400 mg Q6H PRN PO PAIN; Start 05/03/16 at 04:00 Mesalamine (Canasa Supp) 1,000 mg HS [place] Last administered on 05/04/16 20:50; Admin Dose 1,000 MG; Start 05/03/16 at 21:00 Pantoprazole (Protonix Tab) 40 mg BID@18 PO Last administered on 05/05/16 06:20; Admin Dose 40 MG; Start 05/03/16 at 06:00 Polyethylene Glycol (Miralax) 17 gm DAILY PO Last administered on 05/05/16 10: 07; Admin Dose 17 GM; Start 05/03/16 at 09:00 Psyllium Hydrophilic Mucilloid (Metamucil) 1 pkt DAILY PO Last administered on 05/05/16 10:07; Admin Dose 1 PKT; Start 05/03/16 at 09:00 Oseltamivir Phosphate (Tamiflu) 75 mg BID PO Last administered on 05/05/16 10: 06; Admin Dose 75 MG; Start 05/04/16 at 21:00; Stop 05/10/16 at 14:00 WILLIAMS CHAPARRO MD May 05, 2016 10:18
--- NOTE | 2016-05-05 13:15 | CONS ---
Date/Time of Note Date/Time of Note DATE: 05/05/16 TIME: 13:09 Assessment/Plan Assessment/Plan Additional Assessment/Plan Chest x-ray was reviewed from of this month which is clear yesterday. CT scan of chest also was reviewed from the same day which is showing very minimal right upper lobe scarring without any evidence of any acute infiltrates. Assessment recommendations; 1. Patient admitted for nonspecific fever and chills possibly indicative of underlying viral illness. 2. History of being PPD positive, patient failed to take INH no resumed on that. 3. Currently no evidence of any active infective process, particularly pulmonary tuberculous . Continue current treatment. Thanks for the referral. Consultation Date/Type/Reason Admit Date/Time May 03, 2016 at 01:43 Date of Consultation: May 05, 2016 Type of Consultation: Pulmonary Reason for Consultation Pulmonary consultations obtained for evaluation of possible pulmonary dermatosis. Patient admitted for nonspecific fever and chills for the last 1 day. History presenting illness; patient is a 40-year-old male who came into the hospital before yesterday with a 1 day history fever and chills. Patient also was having a very scant cough. According to him he was fine into the symptoms started yesterday prior to presentation to the hospital. He denies any fever anymore denies any shortness of breath, cough. Denies any chest pain. Denies any abdominal pain, nausea vomiting. Past medical history; history of being PPD positive in June of last year. Patient failed to take INH as prescribed. No other medical history. Active pulmonary tuberculosis was ruled out at that time. Next Medications; were reviewed. Allergies; are none. Social history; patient does not smoke. Family history; noncontributory. Next Occupational history noncontributory. Patient currently unemployed. Review of systems; denies any headache, visual changes, seizures, hearing loss. Any sinus symptoms. Any dysphagia. Sore. Any chest pain. Any nausea, vomiting. Any sputum production. Cough or wheezing. Denies any weight loss. Any night sweats. Any edema. Any joint symptoms. Any skin rash. General exam; young male, currently in no distress. Awake and alert. Past Surgical History Past Surgical Hx: no surgical history Social History Smoking Status: Former smoker Exam/Review of Systems Vital Signs Vitals Vital Signs Date Time Temp Pulse Resp B/P Pulse Ox O2 Delivery O2 Flow Rate FiO2 05/05/16 08:02 98.0 76 18 106/59 100 05/02/16 23:49 Nasal Cannula 2 Intake and Output 05/04/16 05/04/16 05/05/16 15:00 23:00 07:00 Intake Total 300 ml 1850 ml 1380 ml Output Total 1300 ml 800 ml Balance 300 ml 550 ml 580 ml Exam HEENT exam; supple neck, no JVD. No lymphadenopathy. Midline trachea. No thyromegaly. Pharynx clear. No neck bruits. Dentition is good. No neck masses. Pupils are midsize reactive to light. Extraocular movements are intact. Chest examination; clear to auscultation bilaterally. S1-S2 audible, no murmurs. Regular rhythm. Abdomen examination; soft, nondistended. No organomegaly. Bowel sounds audible. Nontender. Extremity examination; no peripheral edema. Pulses 1+ bilaterally. No clubbing. BRICK LOADER examination; cranial nerves are intact. No motor deficits. Results Result Diagram: 05/05/16 0710 05/05/16 0712 Results 24 hrs Laboratory Tests Test 05/05/16 07:10 05/05/16 07:12 Basophils # 0.0 Basophils % 0.8 Eosinophils # 0.1 Eosinophils % 2.9 Hematocrit 46.9 Hemoglobin 15.2 Lymphocytes # 1.4 Lymphocytes % 28.8 Mean Corpuscular Hemoglobin 29.0 Mean Corpuscular Hemoglobin Concent 32.4 Mean Corpuscular Volume 89.3 Mean Platelet Volume 11.1 H Monocytes # 0.5 Monocytes % 10.6 Neutrophils # 2.7 Neutrophils % 56.7 Nucleated Red Blood Cells # 0.0 Nucleated Red Blood Cells % 0.0 Platelet Count 229 Red Blood Count 5.25 Red Cell Distribution Width 13.7 White Blood Count 4.8 Anion Gap 17 H Blood Urea Nitrogen 14 Calcium Level 9.2 Carbon Dioxide Level 28 Chloride Level 102 Creatinine 0.96 Glucose Level 85 Potassium Level 3.8 Sodium Level 143 Medications Medications Current Medications Ondansetron HCl (Zofran Inj) 4 mg Q6H PRN IV NAUSEA AND/OR VOMITING; Start at 04:00 Acetaminophen (Tylenol Tab) 650 mg Q6H PRN PO PAIN LEVEL 1-3 OR FEVER; Start at 04:00 Acetaminophen/ Hydrocodone Bitart ([place] (5/325)) 1 tab Q6H PRN PO MODERATE PAIN LEVEL 4-6; Start 05/03/16 at 04:00 Morphine Sulfate (morphine) 2 mg Q4H PRN IV SEVERE PAIN LEVEL 7-10 Last administered on 05/03/16 04:35; Admin Dose 2 MG; Start 05/03/16 at 04:00 Docusate Sodium (Colace) 100 mg Q12H PRN PO CONSTIPATION; Start 05/03/16 at 04: 00 Magnesium Hydroxide (Milk Of Mag) 30 ml DAILY PRN PO CONSTIPATION; Start at 04:00 Sodium Biphosphate/ Sodium Phosphate (Fleet Enema) 133 ml DAILY PRN [place] CONSTIPATION; Start 05/03/16 at 04:00 Heparin Sodium (Porcine) 5000 unit 5,000 unit Q12 SC Last administered on 10:09; Admin Dose 5,000 UNIT; Start 05/03/16 at 09:00 Sodium Chloride (1/2 NS) 1,000 ml @ 75 mls/hr [id number] IV Last administered on 05/05/16 06:14; Admin Dose 75 MLS/HR; Start 05/03/16 at 03:58 Lorazepam 0.5 mg 0.5 mg Q6H PRN IV ANXIETY; Start 05/03/16 at 04:00 Levofloxacin/ Dextrose (Levaquin 750 Mg/ D5W 150 ml (Pmx)) 150 ml @ 100 mls/hr Q24H IVPB Last administered on 05/05/16 06:13; Admin Dose 100 MLS/HR; Start at 06:00 Hydralazine HCl (Apresoline) 10 mg Q6H PRN IV ELEVATED BLOOD PRESSURE; Start at 04:00 Clonidine (Catapres) 0.1 mg Q6H PRN PO ELEVATED BLOOD PRESSURE; Start 05/03/16 at 04:00 Nitroglycerin (Nitroglycerin (Sl Tab) 0.4 Mg) 1 tab Q5M PRN SL ANGINA; Start at 04:00 Buspirone HCl (Buspar) 20 mg BID PO Last administered on 05/05/16 10:06; Admin Dose 20 MG; Start 05/03/16 at 09:00 Ibuprofen (Motrin) 400 mg Q6H PRN PO PAIN; Start 05/03/16 at 04:00 Mesalamine (Canasa Supp) 1,000 mg HS [place] Last administered on 05/04/16 20:50; Admin Dose 1,000 MG; Start 05/03/16 at 21:00 Pantoprazole (Protonix Tab) 40 mg BID@18 PO Last administered on 05/05/16 06:20; Admin Dose 40 MG; Start 05/03/16 at 06:00 Polyethylene Glycol (Miralax) 17 gm DAILY PO Last administered on 05/05/16 10: 07; Admin Dose 17 GM; Start 05/03/16 at 09:00 Psyllium Hydrophilic Mucilloid (Metamucil) 1 pkt DAILY PO Last administered on 05/05/16 10:07; Admin Dose 1 PKT; Start 05/03/16 at 09:00 Oseltamivir Phosphate (Tamiflu) 75 mg BID PO Last administered on 05/05/16 10: 06; Admin Dose 75 MG; Start 05/04/16 at 21:00; Stop 05/10/16 at 14:00 MAGUE CHENG 20, 2017 13:15
--- NOTE | 2016-05-05 13:54 | CONS ---
Date/Time of Note Date/Time of Note DATE: 05/05/16 TIME: 13:52 Assessment/Plan Assessment/Plan Chief Complaint/Hosp Course SUBJECTIVE: No changes overnight. The patient is alert, feels good, looks comfortable. No fevers. VITAL SIGNS: Stable. ANTIMICROBIALS: The patient is on Levaquin. PHYSICAL EXAMINATION: GENERAL: This is a well-developed, middle-aged man who is alert, in no distress. HEENT: Head atraumatic, normocephalic. Sclerae anicteric. Buccal mucosa pink. NECK: Supple. CHEST: Rise symmetrical. Breath sounds clear. HEART: S1, S2. ABDOMEN: Soft. Bowel tones present. EXTREMITIES: Without cyanosis or edema. ASSESSMENT: 1. Systemic inflammatory response syndrome with generalized weakness and myalgias. 2. Right upper chest opacity with associated with bronchiectasis, decreased since the prior CT. 3. History of QuantiFERON TB Gold positive serology. 4. History of alcohol abuse. 5. History of Escherichia coli septicemia secondary to acute pyelonephritis. PLAN: The patient remains stable. He had 3 negative AFB sets back in 06/2015. He has a CT of the chest looks better compared to previous film. Pulmonary is following, will dc isolation DW staff Problems: Consultation Date/Type/Reason Admit Date/Time May 03, 2016 at 01:43 Initial Consult Date 05/05/16 Type of Consultation: ID Exam/Review of Systems Vital Signs Vitals Vital Signs Date Time Temp Pulse Resp B/P Pulse Ox O2 Delivery O2 Flow Rate FiO2 05/05/16 08:02 98.0 76 18 106/59 100 05/02/16 23:49 Nasal Cannula 2 Intake and Output 05/04/16 05/04/16 05/05/16 15:00 23:00 07:00 Intake Total 300 ml 1850 ml 1380 ml Output Total 1300 ml 800 ml Balance 300 ml 550 ml 580 ml Results Result Diagram: 05/05/16 0710 05/05/16 0712 Results 24 hrs Laboratory Tests Test 05/05/16 07:10 05/05/16 07:12 Basophils # 0.0 Basophils % 0.8 Eosinophils # 0.1 Eosinophils % 2.9 Hematocrit 46.9 Hemoglobin 15.2 Lymphocytes # 1.4 Lymphocytes % 28.8 Mean Corpuscular Hemoglobin 29.0 Mean Corpuscular Hemoglobin Concent 32.4 Mean Corpuscular Volume 89.3 Mean Platelet Volume 11.1 H Monocytes # 0.5 Monocytes % 10.6 Neutrophils # 2.7 Neutrophils % 56.7 Nucleated Red Blood Cells # 0.0 Nucleated Red Blood Cells % 0.0 Platelet Count 229 Red Blood Count 5.25 Red Cell Distribution Width 13.7 White Blood Count 4.8 Anion Gap 17 H Blood Urea Nitrogen 14 Calcium Level 9.2 Carbon Dioxide Level 28 Chloride Level 102 Creatinine 0.96 Glucose Level 85 Potassium Level 3.8 Sodium Level 143 Medications Medications Current Medications Ondansetron HCl (Zofran Inj) 4 mg Q6H PRN IV NAUSEA AND/OR VOMITING; Start at 04:00 Acetaminophen (Tylenol Tab) 650 mg Q6H PRN PO PAIN LEVEL 1-3 OR FEVER; Start at 04:00 Acetaminophen/ Hydrocodone Bitart ([place] (5/325)) 1 tab Q6H PRN PO MODERATE PAIN LEVEL 4-6; Start 05/03/16 at 04:00 Morphine Sulfate (morphine) 2 mg Q4H PRN IV SEVERE PAIN LEVEL 7-10 Last administered on 05/03/16 04:35; Admin Dose 2 MG; Start 05/03/16 at 04:00 Docusate Sodium (Colace) 100 mg Q12H PRN PO CONSTIPATION; Start 05/03/16 at 04: 00 Magnesium Hydroxide (Milk Of Mag) 30 ml DAILY PRN PO CONSTIPATION; Start at 04:00 Sodium Biphosphate/ Sodium Phosphate (Fleet Enema) 133 ml DAILY PRN [place] CONSTIPATION; Start 05/03/16 at 04:00 Heparin Sodium (Porcine) 5000 unit 5,000 unit Q12 SC Last administered on 10:09; Admin Dose 5,000 UNIT; Start 05/03/16 at 09:00 Sodium Chloride (1/2 NS) 1,000 ml @ 75 mls/hr [id number] IV Last administered on 05/05/16 06:14; Admin Dose 75 MLS/HR; Start 05/03/16 at 03:58 Lorazepam 0.5 mg 0.5 mg Q6H PRN IV ANXIETY; Start 05/03/16 at 04:00 Levofloxacin/ Dextrose (Levaquin 750 Mg/ D5W 150 ml (Pmx)) 150 ml @ 100 mls/hr Q24H IVPB Last administered on 05/05/16 06:13; Admin Dose 100 MLS/HR; Start at 06:00 Hydralazine HCl (Apresoline) 10 mg Q6H PRN IV ELEVATED BLOOD PRESSURE; Start at 04:00 Clonidine (Catapres) 0.1 mg Q6H PRN PO ELEVATED BLOOD PRESSURE; Start 05/03/16 at 04:00 Nitroglycerin (Nitroglycerin (Sl Tab) 0.4 Mg) 1 tab Q5M PRN SL ANGINA; Start at 04:00 Buspirone HCl (Buspar) 20 mg BID PO Last administered on 05/05/16 10:06; Admin Dose 20 MG; Start 05/03/16 at 09:00 Ibuprofen (Motrin) 400 mg Q6H PRN PO PAIN; Start 05/03/16 at 04:00 Mesalamine (Canasa Supp) 1,000 mg HS [place] Last administered on 05/04/16 20:50; Admin Dose 1,000 MG; Start 05/03/16 at 21:00 Pantoprazole (Protonix Tab) 40 mg BID@06,18 PO Last administered on 05/05/16 06:20; Admin Dose 40 MG; Start 05/03/16 at 06:00 Polyethylene Glycol (Miralax) 17 gm DAILY PO Last administered on 05/05/16 10: 07; Admin Dose 17 GM; Start 05/03/16 at 09:00 Psyllium Hydrophilic Mucilloid (Metamucil) 1 pkt DAILY PO Last administered on 05/05/16 10:07; Admin Dose 1 PKT; Start 05/03/16 at 09:00 Oseltamivir Phosphate (Tamiflu) 75 mg BID PO Last administered on 05/05/16 10: 06; Admin Dose 75 MG; Start 05/04/16 at 21:00; Stop 05/10/16 at 14:00 CAROLYN FUNEZ NP May 05, 2016 13:53
[2016-05-05 20:00] VITALS: BP 113/70; RESP 19
[2016-05-05] MEDS: MESALAMINE 1000 MG SUPP PR SCH (20:20)
[2016-05-06 05:51] LABS: ADD SCAN DIFF NO
[2016-05-06] MEDS: PANTOPRAZOLE (EC) 40 MG TAB PO SCH ×2 (06:13→17:50)
[2016-05-06] MEDS: LEVOFLOXACIN 750MG/D5W (PMX) 150 ML IVPB SCH (06:13)
[2016-05-06 06:19] LABS: BASOPHIL # 0.1 10^3/ul (0.0-0.1); BASOPHILS % 1.2 % (0.0-2.0); EOSINOPHILS # 0.2 10^3/ul (0.0-0.5); EOSINOPHILS % 4.1 % (0.0-7.0); HEMATOCRIT 46.1 % (42.0-52.0); HEMOGLOBIN 14.9 g/dl (14.0-18.0); LYMPHOCYTES # 1.8 10^3/ul (0.8-2.9); MEAN CORPUSCULAR HEMOGLOBIN 28.5 pg (29.0-33.0); MEAN CORPUSCULAR HGB CONC 32.3 g/dl (32.0-37.0); MEAN CORPUSCULAR VOLUME 88.3 fl (82.0-101.0); MEAN PLATELET VOLUME 11.1 fl (7.4-10.4); MONOCYTE # 0.4 10^3/ul (0.3-0.9); MONOCYTES % 9.1 % (0.0-11.0); NEUTROPHIL # 2.4 10^3/ul (1.6-7.5); NEUTROPHILS % 49.4 % (39.0-77.0); PLATELET COUNT 234 10^3/UL (140-415); RED BLOOD COUNT 5.22 10^6/ul (4.70-6.10); RED CELL DISTRIBUTION WIDTH 13.4 % (11.5-14.5); WHITE BLOOD COUNT 4.9 10^3/ul (4.8-10.8)
[2016-05-06 06:30] LABS: CALCIUM 9.3 mg/dl (8.4-10.2); CREATININE 1.01 mg/dl (0.61-1.24)
[2016-05-06 08:05] VITALS: BP 105/66; RESP 16
[2016-05-06] MEDS: POLYETHYLENE GLYCOL 17 GM PACKET PO SCH (08:36)
[2016-05-06] MEDS: PSYLLIUM 28% PACKET PO SCH (08:36)
[2016-05-06] MEDS: BUSPIRONE 10 MG TAB PO SCH ×2 (08:36→20:29)
[2016-05-06] MEDS: HEPARIN 5,000 UNIT/0.5 ML SYG SC SCH ×2 (08:48→20:46)
[2016-05-06] MEDS: OSELTAMIVIR 75 MG CAP PO SCH (08:54)
--- NOTE | 2016-05-06 11:03 | PN ---
Date/Time of Note Date/Time of Note DATE: 05/06/16 TIME: 11:01 Assessment/Plan VTE Prophylaxis VTE Prophylaxis Intervention: SCD's Lines/Catheters [facility] Peripheral IV Urinary Cath still in place: No Assessment/Plan Assessment/Plan 1. Influenza. 2. Right upper lobe pneumonia. 3. Gastroesophageal reflux disease. 4. Constipation. 5. Anxiety. Plan: Isolation continue current IV abx ID following, previous Sputum AFb negative, D/tone isolatoin, possible d/c after ID follow up pt has lot of questions about HPV Virus infection will have ID to talk to Patient BP stable Subjective 24 Hr Interval Summary Free Text/Dictation no cough no SOB Exam/Review of Systems Vital Signs Vitals Vital Signs Date Time Temp Pulse Resp B/P Pulse Ox O2 Delivery O2 Flow Rate FiO2 05/06/16 08:05 97.9 94 16 105/66 98 05/02/16 23:49 Nasal Cannula 2 Intake and Output 05/05/16 05/05/16 05/06/16 15:00 23:00 07:00 Intake Total 1830 ml 675 ml Output Total 300 ml Balance 1530 ml 675 ml Exam GENERAL: The patient is lying in bed, answering questions appropriately, in negative room isolation, in no acute distress. HEENT: Pupils are equal, round, and react to light. Extraocular muscles intact. NECK: Supple. No thyromegaly. LUNGS: Clear to auscultation bilaterally. CARDIOVASCULAR: S1, S2 heard. No rubs or gallops. ABDOMEN: Soft, nontender, nondistended. Normal bowel sounds. No rebound or guarding. MUSCULOSKELETAL: No lower extremity edema bilaterally. NEUROLOGIC: No focal deficits. Results Result Diagram: 05/06/1622 05/06/16521 Results 24 hrs Laboratory Tests Test 05/06/16 05:22 Anion Gap 14 Basophils # 0.1 Basophils % 1.2 Blood Urea Nitrogen 13 Calcium Level 9.3 Carbon Dioxide Level 30 Chloride Level 103 Creatinine 1.01 Eosinophils # 0.2 Eosinophils % 4.1 Glucose Level 92 Hematocrit 46.1 Hemoglobin 14.9 Lymphocytes # 1.8 Lymphocytes % 36.0 Mean Corpuscular Hemoglobin 28.5 L Mean Corpuscular Hemoglobin Concent 32.3 Mean Corpuscular Volume 88.3 Mean Platelet Volume 11.1 H Monocytes # 0.4 Monocytes % 9.1 Neutrophils # 2.4 Neutrophils % 49.4 Nucleated Red Blood Cells # 0.0 Nucleated Red Blood Cells % 0.0 Platelet Count 234 Potassium Level 4.0 Red Blood Count 5.22 Red Cell Distribution Width 13.4 Sodium Level 143 White Blood Count 4.9 Medications Medications Current Medications Ondansetron HCl (Zofran Inj) 4 mg Q6H PRN IV NAUSEA AND/OR VOMITING; Start at 04:00 Acetaminophen (Tylenol Tab) 650 mg Q6H PRN PO PAIN LEVEL 1-3 OR FEVER; Start at 04:00 Acetaminophen/ Hydrocodone Bitart ([place] (5/325)) 1 tab Q6H PRN PO MODERATE PAIN LEVEL 4-6; Start 05/03/16 at 04:00 Morphine Sulfate (morphine) 2 mg Q4H PRN IV SEVERE PAIN LEVEL 7-10 Last administered on 05/03/16 04:35; Admin Dose 2 MG; Start 05/03/16 at 04:00 Docusate Sodium (Colace) 100 mg Q12H PRN PO CONSTIPATION; Start 05/03/16 at 04: 00 Magnesium Hydroxide (Milk Of Mag) 30 ml DAILY PRN PO CONSTIPATION; Start at 04:00 Sodium Biphosphate/ Sodium Phosphate (Fleet Enema) 133 ml DAILY PRN [place] CONSTIPATION; Start 05/03/16 at 04:00 Heparin Sodium (Porcine) 5000 unit 5,000 unit Q12 SC Last administered on 08:48; Admin Dose 5,000 UNIT; Start 05/03/16 at 09:00 Sodium Chloride (1/2 NS) 1,000 ml @ 75 mls/hr [id number] IV Last administered on 05/05/16 20:20; Admin Dose 75 MLS/HR; Start 05/03/16 at 03:58 Lorazepam (Ativan) 0.5 mg Q6H PRN IV ANXIETY; Start 05/03/16 at 04:00 Hydralazine HCl (Apresoline) 10 mg Q6H PRN IV ELEVATED BLOOD PRESSURE; Start at 04:00 Clonidine (Catapres) 0.1 mg Q6H PRN PO ELEVATED BLOOD PRESSURE; Start 05/03/16 at 04:00 Nitroglycerin (Nitroglycerin (Sl Tab) 0.4 Mg) 1 tab Q5M PRN SL ANGINA; Start at 04:00 Buspirone HCl (Buspar) 20 mg BID PO Last administered on 05/06/16 08:36; Admin Dose 20 MG; Start 05/03/16 at 09:00 Ibuprofen (Motrin) 400 mg Q6H PRN PO PAIN; Start 05/03/16 at 04:00 Mesalamine (Canasa Supp) 1,000 mg HS [place] Last administered on 05/05/16 20:20; Admin Dose 1,000 MG; Start 05/03/16 at 21:00 Pantoprazole (Protonix Tab) 40 mg BID@18 PO Last administered on 05/06/16 06:13; Admin Dose 40 MG; Start 05/03/16 at 06:00 Polyethylene Glycol (Miralax) 17 gm DAILY PO Last administered on 05/06/16 08: 36; Admin Dose 17 GM; Start 05/03/16 at 09:00 Psyllium Hydrophilic Mucilloid (Metamucil) 1 pkt DAILY PO Last administered on 05/06/16 08:36; Admin Dose 1 PKT; Start 05/03/16 at 09:00 WILLIAMS CHAPARRO MD May 06, 2016 11:03
--- NOTE | 2016-05-06 11:05 | PDOCDIS ---
Discharge Instructions CONDITION Patient Condition: Good HOME CARE INSTRUCTIONS: Special Diet: regular ACTIVITY: Activity Restrictions: Slowly Increase Activity Rest between Activity Avoid heavy lifting Avoid Heavy Housework FOLLOW UP/APPOINTMENTS Appointments follow up with his own PMD through HMO insurance in 1- 2week. He is advised to come back to Hospital or go to [facility] if no improvement in symptoms. WILLIAMS CHAPARRO MD May 06, 2016 11:04
[2016-05-06] MEDS ORDERED: LEVO500T10 PO (11:06)
[2016-05-06] MEDS: SOD CHLORIDE 0.45% 1,000 ML IV SCH ×2 (11:58→15:28)
--- NOTE | 2016-05-06 13:58 | CONS ---
Date/Time of Note Date/Time of Note DATE: 05/06/16 TIME: 13:57 Assessment/Plan Assessment/Plan Chief Complaint/Hosp Course SUBJECTIVE: No changes overnight. The patient is alert, feels good, looks comfortable. No fevers. PHYSICAL EXAMINATION: GENERAL: This is a well-developed, middle-aged man who is alert, in no distress. HEENT: Head atraumatic, normocephalic. Sclerae anicteric. Buccal mucosa pink. NECK: Supple. CHEST: Rise symmetrical. Breath sounds clear. HEART: S1, S2. ABDOMEN: Soft. Bowel tones present. EXTREMITIES: Without cyanosis or edema. ASSESSMENT: 1. Systemic inflammatory response syndrome with generalized weakness and myalgias. 2. Right upper chest opacity with associated with bronchiectasis, decreased since the prior CT. 3. History of QuantiFERON TB Gold positive serology. 4. History of alcohol abuse. 5. History of Escherichia coli septicemia secondary to acute pyelonephritis. PLAN: The patient remains stable. Pending dc planning, ok dc off abx DW staff/pt DW JERRICA over the phone Problems: Consultation Date/Type/Reason Admit Date/Time May 03, 2016 at 01:43 Initial Consult Date 05/05/16 Type of Consultation: ID Exam/Review of Systems Vital Signs Vitals Vital Signs Date Time Temp Pulse Resp B/P Pulse Ox O2 Delivery O2 Flow Rate FiO2 05/06/16 08:05 97.9 94 16 105/66 98 05/02/16 23:49 Nasal Cannula 2 Intake and Output 05/05/16 05/05/16 05/06/16 15:00 23:00 07:00 Intake Total 1830 ml 675 ml Output Total 300 ml Balance 1530 ml 675 ml Results Result Diagram: 05/06/16 0522 05/06/16 0522 Results 24 hrs Laboratory Tests Test 05/06/16 05:22 Anion Gap 14 Basophils # 0.1 Basophils % 1.2 Blood Urea Nitrogen 13 Calcium Level 9.3 Carbon Dioxide Level 30 Chloride Level 103 Creatinine 1.01 Eosinophils # 0.2 Eosinophils % 4.1 Glucose Level 92 Hematocrit 46.1 Hemoglobin 14.9 Lymphocytes # 1.8 Lymphocytes % 36.0 Mean Corpuscular Hemoglobin 28.5 L Mean Corpuscular Hemoglobin Concent 32.3 Mean Corpuscular Volume 88.3 Mean Platelet Volume 11.1 H Monocytes # 0.4 Monocytes % 9.1 Neutrophils # 2.4 Neutrophils % 49.4 Nucleated Red Blood Cells # 0.0 Nucleated Red Blood Cells % 0.0 Platelet Count 234 Potassium Level 4.0 Red Blood Count 5.22 Red Cell Distribution Width 13.4 Sodium Level 143 White Blood Count 4.9 Medications Medications Current Medications Ondansetron HCl (Zofran Inj) 4 mg Q6H PRN IV NAUSEA AND/OR VOMITING; Start at 04:00 Acetaminophen (Tylenol Tab) 650 mg Q6H PRN PO PAIN LEVEL 1-3 OR FEVER; Start at 04:00 Acetaminophen/ Hydrocodone Bitart ([place] (5/325)) 1 tab Q6H PRN PO MODERATE PAIN LEVEL 4-6; Start 05/03/16 at 04:00 Morphine Sulfate (morphine) 2 mg Q4H PRN IV SEVERE PAIN LEVEL 7-10 Last administered on 05/03/16 04:35; Admin Dose 2 MG; Start 05/03/16 at 04:00 Docusate Sodium (Colace) 100 mg Q12H PRN PO CONSTIPATION; Start 05/03/16 at 04: 00 Magnesium Hydroxide (Milk Of Mag) 30 ml DAILY PRN PO CONSTIPATION; Start at 04:00 Sodium Biphosphate/ Sodium Phosphate (Fleet Enema) 133 ml DAILY PRN [place] CONSTIPATION; Start 05/03/16 at 04:00 Heparin Sodium (Porcine) 5000 unit 5,000 unit Q12 SC Last administered on 08:48; Admin Dose 5,000 UNIT; Start 05/03/16 at 09:00 Sodium Chloride (1/2 NS) 1,000 ml @ 75 mls/hr [id number] IV Last administered on 05/05/16 20:20; Admin Dose 75 MLS/HR; Start 05/03/16 at 03:58 Lorazepam (Ativan) 0.5 mg Q6H PRN IV ANXIETY; Start 05/03/16 at 04:00 Hydralazine HCl (Apresoline) 10 mg Q6H PRN IV ELEVATED BLOOD PRESSURE; Start at 04:00 Clonidine (Catapres) 0.1 mg Q6H PRN PO ELEVATED BLOOD PRESSURE; Start 05/03/16 at 04:00 Nitroglycerin (Nitroglycerin (Sl Tab) 0.4 Mg) 1 tab Q5M PRN SL ANGINA; Start at 04:00 Buspirone HCl (Buspar) 20 mg BID PO Last administered on 05/06/16 08:36; Admin Dose 20 MG; Start 05/03/16 at 09:00 Ibuprofen (Motrin) 400 mg Q6H PRN PO PAIN; Start 05/03/16 at 04:00 Mesalamine (Canasa Supp) 1,000 mg HS [place] Last administered on 05/05/16 20:20; Admin Dose 1,000 MG; Start 05/03/16 at 21:00 Pantoprazole (Protonix Tab) 40 mg BID@18 PO Last administered on 05/06/16 06:13; Admin Dose 40 MG; Start 05/03/16 at 06:00 Polyethylene Glycol (Miralax) 17 gm DAILY PO Last administered on 05/06/16 08: 36; Admin Dose 17 GM; Start 05/03/16 at 09:00 Psyllium Hydrophilic Mucilloid (Metamucil) 1 pkt DAILY PO Last administered on 05/06/16 08:36; Admin Dose 1 PKT; Start 05/03/16 at 09:00 CAROLYN FUNEZ NP May 06, 2016 13:58
[2016-05-06 20:21] VITALS: BP 101/63; RESP 18
[2016-05-06] MEDS: MESALAMINE 1000 MG SUPP PR SCH (20:29)
[2016-05-07] MEDS: SOD CHLORIDE 0.45% 1,000 ML IV SCH ×2 (01:01→15:14)
[2016-05-07] MEDS: PANTOPRAZOLE (EC) 40 MG TAB PO SCH ×2 (06:06→18:18)
[2016-05-07 06:24] LABS: ADD SCAN DIFF NO
[2016-05-07 06:27] LABS: BASOPHIL # 0.1 10^3/ul (0.0-0.1); BASOPHILS % 1.1 % (0.0-2.0); EOSINOPHILS # 0.2 10^3/ul (0.0-0.5); EOSINOPHILS % 3.7 % (0.0-7.0); HEMOGLOBIN 14.7 g/dl (14.0-18.0); LYMPHOCYTES % 37.1 % (15.0-51.0); MEAN CORPUSCULAR HEMOGLOBIN 28.9 pg (29.0-33.0); MEAN CORPUSCULAR HGB CONC 32.7 g/dl (32.0-37.0); MEAN CORPUSCULAR VOLUME 88.4 fl (82.0-101.0); MEAN PLATELET VOLUME 10.6 fl (7.4-10.4); MONOCYTE # 0.5 10^3/ul (0.3-0.9); MONOCYTES % 9.2 % (0.0-11.0); NEUTROPHIL # 2.7 10^3/ul (1.6-7.5); NEUTROPHILS % 48.5 % (39.0-77.0); PLATELET COUNT 228 10^3/UL (140-415); RED BLOOD COUNT 5.09 10^6/ul (4.70-6.10); RED CELL DISTRIBUTION WIDTH 13.4 % (11.5-14.5); WHITE BLOOD COUNT 5.5 10^3/ul (4.8-10.8)
[2016-05-07 06:50] LABS: CREATININE 0.92 mg/dl (0.61-1.24)
[2016-05-07 06:51] LABS: CALCIUM 9.3 mg/dl (8.4-10.2)
[2016-05-07 06:58] LABS: POTASSIUM 4.5 mmol/L (3.5-5.1)
[2016-05-07 07:21] VITALS: BP 108/63; RESP 20
[2016-05-07] MEDS: POLYETHYLENE GLYCOL 17 GM PACKET PO SCH (08:29)
[2016-05-07] MEDS: PSYLLIUM 28% PACKET PO SCH (08:29)
[2016-05-07] MEDS: BUSPIRONE 10 MG TAB PO SCH ×2 (08:29→22:42)
[2016-05-07] MEDS: HEPARIN 5,000 UNIT/0.5 ML SYG SC SCH ×2 (08:38→23:19)
[2016-05-07] MEDS: HYDROCODONE/APAP (5/325) TAB PO PRN (08:46)
--- NOTE | 2016-05-07 15:28 | PN ---
Date/Time of Note Date/Time of Note DATE: 05/07/16 TIME: 15:26 Assessment/Plan VTE Prophylaxis VTE Prophylaxis Intervention: SCD's Lines/Catheters [facility] Saline Lock Urinary Cath still in place: No Assessment/Plan Assessment/Plan 1. Influenza. 2. Right upper lobe pneumonia. 3. Gastroesophageal reflux disease. 4. Constipation. 5. Anxiety. Plan: Isolation continue current IV abx ID following, previous Sputum AFb negative, D/tone isolatoin, possible d/c after ID follow up pt has lot of questions about HPV Virus infection will have ID to talk to Patient BP stable Subjective 24 Hr Interval Summary Free Text/Dictation no complaints, BP stable Exam/Review of Systems Vital Signs Vitals Vital Signs Date Time Temp Pulse Resp B/P Pulse Ox O2 Delivery O2 Flow Rate FiO2 05/07/16 07:21 98.1 72 20 108/63 99 Intake and Output 05/06/16 05/06/16 05/07/16 15:00 23:00 07:00 Intake Total 150 ml 1080 ml 1400 ml Output Total 1600 ml 1000 ml Balance 150 ml -520 ml 400 ml Exam GENERAL: The patient is lying in bed, answering questions appropriately, in negative room isolation, in no acute distress. HEENT: Pupils are equal, round, and react to light. Extraocular muscles intact. NECK: Supple. No thyromegaly. LUNGS: Clear to auscultation bilaterally. CARDIOVASCULAR: S1, S2 heard. No rubs or gallops. ABDOMEN: Soft, nontender, nondistended. Normal bowel sounds. No rebound or guarding. MUSCULOSKELETAL: No lower extremity edema bilaterally. NEUROLOGIC: No focal deficits. Results Result Diagram: 05/07/16 0604 05/07/16 0609 Results 24 hrs Laboratory Tests Test 05/07/16 06:04 05/07/16 06:09 White Blood Count 5.5 Red Blood Count 5.09 Hemoglobin 14.7 Hematocrit 45.0 Mean Corpuscular Volume 88.4 Mean Corpuscular Hemoglobin 28.9 L Mean Corpuscular Hemoglobin Concent 32.7 Red Cell Distribution Width 13.4 Platelet Count 228 Mean Platelet Volume 10.6 H Neutrophils % 48.5 Lymphocytes % 37.1 Monocytes % 9.2 Eosinophils % 3.7 Basophils % 1.1 Nucleated Red Blood Cells % 0.0 Neutrophils # 2.7 Lymphocytes # 2.0 Monocytes # 0.5 Eosinophils # 0.2 Basophils # 0.1 Nucleated Red Blood Cells # 0.0 Sodium Level 143 Potassium Level 4.5 Chloride Level 104 Carbon Dioxide Level 27 Anion Gap 17 H Blood Urea Nitrogen 11 Creatinine 0.92 Glucose Level 91 Calcium Level 9.3 Medications Medications Current Medications Ondansetron HCl (Zofran Inj) 4 mg Q6H PRN IV NAUSEA AND/OR VOMITING; Start at 04:00 Acetaminophen (Tylenol Tab) 650 mg Q6H PRN PO PAIN LEVEL 1-3 OR FEVER; Start at 04:00 Acetaminophen/ Hydrocodone Bitart ([place] (5/325)) 1 tab Q6H PRN PO MODERATE PAIN LEVEL 4-6 Last administered on 05/07/16 08:46; Admin Dose 1 TAB; Start at 04:00 Morphine Sulfate (morphine) 2 mg Q4H PRN IV SEVERE PAIN LEVEL 7-10 Last administered on 05/03/16 04:35; Admin Dose 2 MG; Start 05/03/16 at 04:00 Docusate Sodium (Colace) 100 mg Q12H PRN PO CONSTIPATION; Start 05/03/16 at 04: 00 Magnesium Hydroxide (Milk Of Mag) 30 ml DAILY PRN PO CONSTIPATION; Start at 04:00 Sodium Biphosphate/ Sodium Phosphate (Fleet Enema) 133 ml DAILY PRN [place] CONSTIPATION; Start 05/03/16 at 04:00 Heparin Sodium (Porcine) 5000 unit 5,000 unit Q12 SC Last administered on 08:38; Admin Dose 5,000 UNIT; Start 05/03/16 at 09:00 Sodium Chloride (1/2 NS) 1,000 ml @ 75 mls/hr [id number] IV Last administered on 05/07/16 15:14; Admin Dose 75 MLS/HR; Start 05/03/16 at 03:58 Lorazepam (Ativan) 0.5 mg Q6H PRN IV ANXIETY; Start 05/03/16 at 04:00 Hydralazine HCl (Apresoline) 10 mg Q6H PRN IV ELEVATED BLOOD PRESSURE; Start at 04:00 Clonidine (Catapres) 0.1 mg Q6H PRN PO ELEVATED BLOOD PRESSURE; Start 05/03/16 at 04:00 Nitroglycerin (Nitroglycerin (Sl Tab) 0.4 Mg) 1 tab Q5M PRN SL ANGINA; Start at 04:00 Buspirone HCl (Buspar) 20 mg BID PO Last administered on 05/07/16 08:29; Admin Dose 20 MG; Start 05/03/16 at 09:00 Ibuprofen (Motrin) 400 mg Q6H PRN PO PAIN; Start 05/03/16 at 04:00 Mesalamine (Canasa Supp) 1,000 mg HS [place] Last administered on 05/06/16 20:29; Admin Dose 1,000 MG; Start 05/03/16 at 21:00 Pantoprazole (Protonix Tab) 40 mg BID@18 PO Last administered on 05/07/16 06:06; Admin Dose 40 MG; Start 05/03/16 at 06:00 Polyethylene Glycol (Miralax) 17 gm DAILY PO Last administered on 05/07/16 08: 29; Admin Dose 17 GM; Start 05/03/16 at 09:00 Psyllium Hydrophilic Mucilloid (Metamucil) 1 pkt DAILY PO Last administered on 05/07/16 08:29; Admin Dose 1 PKT; Start 05/03/16 at 09:00 WILLIAMS CHAPARRO MD May 07, 2016 15:28
[2016-05-07 19:53] VITALS: BP 119/63; RESP 16
[2016-05-07] MEDS: MESALAMINE 1000 MG SUPP PR SCH (22:42)
[2016-05-07] MEDS: morphine 2 MG INJ IV PRN (22:48)
[2016-05-08] MEDS: SOD CHLORIDE 0.45% 1,000 ML IV SCH ×2 (04:51→17:49)
[2016-05-08 06:02] LABS: ADD SCAN DIFF NO
[2016-05-08 06:17] LABS: BASOPHILS % 0.7 % (0.0-2.0); EOSINOPHILS # 0.2 10^3/ul (0.0-0.5); EOSINOPHILS % 3.7 % (0.0-7.0); HEMATOCRIT 44.3 % (42.0-52.0); HEMOGLOBIN 14.7 g/dl (14.0-18.0); LYMPHOCYTES # 2.1 10^3/ul (0.8-2.9); LYMPHOCYTES % 34.9 % (15.0-51.0); MEAN CORPUSCULAR HEMOGLOBIN 29.3 pg (29.0-33.0); MEAN CORPUSCULAR HGB CONC 33.2 g/dl (32.0-37.0); MEAN CORPUSCULAR VOLUME 88.2 fl (82.0-101.0); MEAN PLATELET VOLUME 10.9 fl (7.4-10.4); MONOCYTE # 0.6 10^3/ul (0.3-0.9); MONOCYTES % 9.3 % (0.0-11.0); NEUTROPHILS % 50.9 % (39.0-77.0); PLATELET COUNT 232 10^3/UL (140-415); RED BLOOD COUNT 5.02 10^6/ul (4.70-6.10); RED CELL DISTRIBUTION WIDTH 13.5 % (11.5-14.5); WHITE BLOOD COUNT 5.9 10^3/ul (4.8-10.8)
[2016-05-08] MEDS: PANTOPRAZOLE (EC) 40 MG TAB PO SCH ×2 (06:37→17:49)
[2016-05-08 06:40] LABS: CREATININE 0.96 mg/dl (0.61-1.24)
[2016-05-08 06:41] LABS: CALCIUM 9.1 mg/dl (8.4-10.2)
[2016-05-08 07:56] VITALS: BP 91/57; RESP 20
[2016-05-08] MEDS: POLYETHYLENE GLYCOL 17 GM PACKET PO SCH (09:35)
[2016-05-08] MEDS: PSYLLIUM 28% PACKET PO SCH (09:35)
[2016-05-08] MEDS: BUSPIRONE 10 MG TAB PO SCH ×2 (09:35→20:25)
[2016-05-08] MEDS: HEPARIN 5,000 UNIT/0.5 ML SYG SC SCH ×2 (09:38→20:36)
[2016-05-08] MEDS: HYDROCODONE/APAP (5/325) TAB PO PRN (13:00)
--- NOTE | 2016-05-08 18:49 | PN ---
Date/Time of Note Date/Time of Note DATE: 05/08/16 TIME: 18:48 Assessment/Plan VTE Prophylaxis VTE Prophylaxis Intervention: SCD's Lines/Catheters IV Catheter Type (from Nrs): Saline Lock Urinary Cath still in place: No Assessment/Plan Assessment/Plan 1. Influenza. 2. Right upper lobe pneumonia. 3. Gastroesophageal reflux disease. 4. Constipation. 5. Anxiety. Plan: Off abx TB isolation 2 AFB negative, one pending awaiting [facility] for d/c Subjective 24 Hr Interval Summary Free Text/Dictation 2 sputum AFB negative, one pending Exam/Review of Systems Vital Signs Vitals Vital Signs Date Time Temp Pulse Resp B/P Pulse Ox O2 Delivery O2 Flow Rate FiO2 05/08/16 07:56 98.2 62 20 91/57 100 Intake and Output 05/07/16 05/07/16 05/08/16 15:00 23:00 07:00 Intake Total 1810 ml 1450 ml Output Total 750 ml 1200 ml Balance 1060 ml 250 ml Results Result Diagram: 05/08/16 0545 05/08/16 0545 Results 24 hrs Laboratory Tests Test 05/08/16 05:45 White Blood Count 5.9 Red Blood Count 5.02 Hemoglobin 14.7 Hematocrit 44.3 Mean Corpuscular Volume 88.2 Mean Corpuscular Hemoglobin 29.3 Mean Corpuscular Hemoglobin Concent 33.2 Red Cell Distribution Width 13.5 Platelet Count 232 Mean Platelet Volume 10.9 H Neutrophils % 50.9 Lymphocytes % 34.9 Monocytes % 9.3 Eosinophils % 3.7 Basophils % 0.7 Nucleated Red Blood Cells % 0.0 Neutrophils # 3.0 Lymphocytes # 2.1 Monocytes # 0.6 Eosinophils # 0.2 Basophils # 0.0 Nucleated Red Blood Cells # 0.0 Sodium Level 142 Potassium Level 4.0 Chloride Level 102 Carbon Dioxide Level 29 Anion Gap 15 Blood Urea Nitrogen 10 Creatinine 0.96 Glucose Level 91 Calcium Level 9.1 Medications Medications Current Medications Ondansetron HCl (Zofran Inj) 4 mg Q6H PRN IV NAUSEA AND/OR VOMITING; Start at 04:00 Acetaminophen (Tylenol Tab) 650 mg Q6H PRN PO PAIN LEVEL 1-3 OR FEVER Last administered on 05/07/16t 18:18; Admin Dose 650 MG; Start 05/03/16 at 04:00 Acetaminophen/ Hydrocodone Bitart ([place] (5/325)) 1 tab Q6H PRN PO MODERATE PAIN LEVEL 4-6 Last administered on 05/08/16 13:00; Admin Dose 1 TAB; Start at 04:00 Morphine Sulfate (morphine) 2 mg Q4H PRN IV SEVERE PAIN LEVEL 7-10 Last administered on 05/07/16 22:48; Admin Dose 2 MG; Start 05/03/16 at 04:00 Docusate Sodium (Colace) 100 mg Q12H PRN PO CONSTIPATION; Start 05/03/16 at 04: 00 Magnesium Hydroxide (Milk Of Mag) 30 ml DAILY PRN PO CONSTIPATION; Start at 04:00 Sodium Biphosphate/ Sodium Phosphate (Fleet Enema) 133 ml DAILY PRN [place] CONSTIPATION; Start 05/03/16 at 04:00 Heparin Sodium (Porcine) 5000 unit 5,000 unit Q12 SC Last administered on 09:38; Admin Dose 5,000 UNIT; Start 05/03/16 at 09:00 Sodium Chloride (1/2 NS) 1,000 ml @ 75 mls/hr [id number] IV Last administered on 05/08/16 17:49; Admin Dose 75 MLS/HR; Start 05/03/16 at 03:58 Lorazepam (Ativan) 0.5 mg Q6H PRN IV ANXIETY; Start 05/03/16 at 04:00 Hydralazine HCl (Apresoline) 10 mg Q6H PRN IV ELEVATED BLOOD PRESSURE; Start at 04:00 Clonidine (Catapres) 0.1 mg Q6H PRN PO ELEVATED BLOOD PRESSURE; Start 05/03/16 at 04:00 Nitroglycerin (Nitroglycerin (Sl Tab) 0.4 Mg) 1 tab Q5M PRN SL ANGINA; Start at 04:00 Buspirone HCl (Buspar) 20 mg BID PO Last administered on 05/08/16 09:35; Admin Dose 20 MG; Start 05/03/16 at 09:00 Ibuprofen (Motrin) 400 mg Q6H PRN PO PAIN; Start 05/03/16 at 04:00 Mesalamine (Canasa Supp) 1,000 mg HS [place] Last administered on 05/07/16 22:42; Admin Dose 1,000 MG; Start 05/03/16 at 21:00 Pantoprazole (Protonix Tab) 40 mg BID@ PO Last administered on 05/08/16 17:49; Admin Dose 40 MG; Start 05/03/16 at 06:00 Polyethylene Glycol (Miralax) 17 gm DAILY PO Last administered on 05/08/16 09: 35; Admin Dose 17 GM; Start 05/03/16 at 09:00 Psyllium Hydrophilic Mucilloid (Metamucil) 1 pkt DAILY PO Last administered on 05/08/16 09:35; Admin Dose 1 PKT; Start 05/03/16 at 09:00 WILLIAMS CHAPARRO MD May 08, 2016 18:49
[2016-05-08 19:58] VITALS: BP 111/55; RESP 16
[2016-05-08] MEDS: MESALAMINE 1000 MG SUPP PR SCH (20:25)
[2016-05-09] MEDS: HYDROCODONE/APAP (5/325) TAB PO PRN (03:42)
[2016-05-09 05:29] LABS: ADD SCAN DIFF NO
[2016-05-09 05:49] LABS: BASOPHIL # 0.1 10^3/ul (0.0-0.1); BASOPHILS % 1.2 % (0.0-2.0); EOSINOPHILS # 0.2 10^3/ul (0.0-0.5); EOSINOPHILS % 3.2 % (0.0-7.0); HEMATOCRIT 44.5 % (42.0-52.0); HEMOGLOBIN 14.6 g/dl (14.0-18.0); LYMPHOCYTES # 2.1 10^3/ul (0.8-2.9); MEAN CORPUSCULAR HEMOGLOBIN 29.1 pg (29.0-33.0); MEAN CORPUSCULAR HGB CONC 32.8 g/dl (32.0-37.0); MEAN CORPUSCULAR VOLUME 88.8 fl (82.0-101.0); MEAN PLATELET VOLUME 10.8 fl (7.4-10.4); MONOCYTE # 0.6 10^3/ul (0.3-0.9); MONOCYTES % 9.8 % (0.0-11.0); NEUTROPHILS % 50.3 % (39.0-77.0); PLATELET COUNT 241 10^3/UL (140-415); RED BLOOD COUNT 5.01 10^6/ul (4.70-6.10); RED CELL DISTRIBUTION WIDTH 13.7 % (11.5-14.5); WHITE BLOOD COUNT 5.9 10^3/ul (4.8-10.8)
[2016-05-09 06:08] LABS: POTASSIUM 4.2 mmol/L (3.5-5.1)
[2016-05-09 06:11] LABS: CREATININE 1.03 mg/dl (0.61-1.24)
[2016-05-09 06:12] LABS: CALCIUM 9.1 mg/dl (8.4-10.2)
[2016-05-09] MEDS: PANTOPRAZOLE (EC) 40 MG TAB PO SCH (06:18)
[2016-05-09] MEDS: SOD CHLORIDE 0.45% 1,000 ML IV SCH (06:18)
[2016-05-09 08:09] VITALS: BP 97/63; RESP 18
[2016-05-09] MEDS: PSYLLIUM 28% PACKET PO SCH (09:24)
[2016-05-09] MEDS: POLYETHYLENE GLYCOL 17 GM PACKET PO SCH (09:24)
[2016-05-09] MEDS: BUSPIRONE 10 MG TAB PO SCH (09:24)
[2016-05-09] MEDS: HEPARIN 5,000 UNIT/0.5 ML SYG SC SCH (09:28)
--- NOTE | 2016-05-11 00:29 | DS ---
DATE OF ADMISSION: 05/03/2016 DATE OF DISCHARGE: 05/09/2016 FINAL DISCHARGE DIAGNOSES: 1. Systemic inflammatory response syndrome. 2. Right lung bronchiectasis. 3. Acute bronchitis. 4. History of tuberculosis Gold QuantiFERON positive serologies, patient had sputum AFB x3 negative . 5. History of alcohol abuse. 6. History of Escherichia coli septicemia secondary to acute pyelonephritis. CONSULTATIONS DONE DURING THIS HOSPITALIZATION: Infectious disease consult, Dr. Cody. HOSPITAL COURSE: This is a 40-year-old male, who presented with a complaint of generalized weakness , fatigue, fevers, chills. He got admitted for systemic inflammatory response syndrome. He has a h istory of positive TB Gold QuantiFERON. The patient had Escherichia coli septicemia secondary to ac caitlin pyelonephritis. The patient was evaluated by Infectious Disease Service, Dr. Cody. He was in itially treated with INH, but then it was subsequently stopped because the patient had no symptoms o f TB, but due to his history of TB Gold QuantiFERON positive, he was sent for sputum AFB x3. His sp utum AFB x3 was negative. He was treated with IV antibiotics while being in the hospital. The malathi ent was followed by Infectious Disease Service and had a workup done including AFB x3 negative, bloo d culture x2 negative, urine culture grew coagulase negative staph. He remained asymptomatic, 3 whi te counts were normal, no fever, no chills, and he got discharged home with a prescription of Levaqu in. DISPOSITION: To home. DISCHARGE CONDITION: Stable and improved compared to admission. DISCHARGE ACTIVITIES: As tolerated, slowly resume to the normal baseline activity. DISCHARGE DIET: Regular diet. DISCHARGE MEDICATIONS: 1. He is given a prescription of Levaquin 500 mg p.o. daily x5 days. 2. He is continued on all of his other home medications on discharge. DISCHARGE FOLLOWUP INSTRUCTIONS: The patient is to follow up with his own primary care doctor oumou gh his HMO insurance 1-2 weeks after discharge. The patient was cleared for discharge by Department of Public Health after getting a sputum AFB x3 negative. Dictated By: WILLIAMS CHAPARRO MD, KP/JEFFERSON Conf#: [id number] DID#: [id number]
== END 2016-05-09 13:15 | disposition home or self-care (01) | DRG 194 ==
LOC: E/R 18:25 → MS2 05-03 01:43
PROVIDERS: ADMIT Hospitalist; ATTEND Hospitalist
DX: J11.00 Influenza due to unidentified influenza virus with unspecified type of pneumonia (principal); R65.10 Systemic inflammatory response syndrome (SIRS) of non-infectious origin without acute organ dysfunction; Z91.14 Patient's other noncompliance with medication regimen; Z86.11 Personal history of tuberculosis; K59.00 Constipation, unspecified; K21.9 Gastro-esophageal reflux disease without esophagitis
CPT/HCPCS: 71010; 71260; 80048; 80053; 80061; 81003; 83036; 83605; 83735; 84100; 84439; 84443; 84484; 85025; 85610; 85730; 86703; 87015; 87040; 87086; 87116; 87400; 87556; 93005; J1644; J1956; J2270; J7030; Q9967